=== PATIENT | female | born 1955 | race African-American/Black ===

== ENCOUNTER 2018-10-18 19:33 | Inpatient (IN) | payer MEDICAID ==
[~2018-10-18] VITALS: Ht 182.9 cm; Wt 92.7 kg
[~2018-10-18 19:33] MED LIST: BACL20TA PO; COPAXONE; DETLA2 PO; GABA300C PO; MULT-1146 PO; OXYB5TAB11 PO; VITAMIN C
[2018-10-18] MEDS ORDERED: SODIUM CHLORIDE 0.9% 1000ML BAG (SEPSIS BOLUS) IV ONE (20:15)
[2018-10-18] MEDS ORDERED: ACETAMINOPHEN 325MG TABLET PO STA (20:15)
[2018-10-18] MEDS ORDERED: LEVOFLOXACIN 750MG PREMIX 150 ML IV ONE (20:15)
[2018-10-18 21:04] LABS: CHLORIDE 103 mEq/L (98-107); HEMATOCRIT. 36.2 % (36.0-48.0); HEMOGLOBIN. 11.4 g/dL (12.0-16.0); MEAN CORPUSCULAR HEMOGLOBIN 26.1 pg (28.0-32.0); MEAN CORPUSCULAR VOLUME 82.9 fL (81.0-99.0); MEAN PLATELET VOLUME 8.1 fl (7.4-10.4); PLATELET 595 x1000/uL (130-400); RED BLOOD CELL COUNT 4.37 mill/uL (4.2-5.4); RED CELL DISTRIBUTION WIDTH 15.5 % (11.6-14.6)
[2018-10-18 21:06] LABS: INR 1.1; PARTIAL THROMBOPLASTIN TIME 28.9 sec (23.4-31.0); PROTHROMBIN TIME 11.5 sec (9.6-11.0)
[2018-10-18 21:26] LABS: PLATELET ESTIMATE INCREASED
[2018-10-18 22:33] LABS: CLARITY URINE TURBID (CLEAR); COLOR URINE YELLOW (YELLOW); KETONES URINE 1+ (NEGATIVE); LEUKOCYTE ESTERASE URINE 3+ (NEGATIVE); NITRITE URINE POSITIVE (NEGATIVE); OCCULT BLOOD URINE 3+ (NEGATIVE); PROTEIN URINE 3+ (NEGATIVE); SPECIFIC GRAVITY URINE 1.015 (1.005-1.030)
[2018-10-18] MEDS ORDERED: KETOROLAC 15MG/ML VIAL IV ONE (23:15)
[2018-10-19 05:00] VITALS: BP 107/55
[2018-10-19] MEDS ORDERED: POTASSIUM CHLORIDE 20MEQ TABLET SR PO NR (05:30)
[2018-10-19] MEDS ORDERED: DEXTROSE 50% WATER 50ML SYRINGE IV PRN (05:30)
[2018-10-19] MEDS: MORPHINE SULFATE 4 MG/ML CPJ (NOT FOR IM USE) IV PRN ×4 (06:11→20:39)
[2018-10-19] MEDS: BLOOD SUGAR DIAGNOSTIC STRIP TEST SCH ×4 (06:19→20:04)
[2018-10-19] MEDS: INSULIN LISPRO 100 UNITS/ML SUBCUT SCH ×4 (07:41→20:04)
[2018-10-19 08:00] VITALS: BP 126/61
[2018-10-19 09:01] LABS: HEMATOCRIT. 32.9 % (36.0-48.0); HEMOGLOBIN. 10.5 g/dL (12.0-16.0); MEAN CORPUSCULAR HEMOGLOBIN 26.6 pg (28.0-32.0); MEAN CORPUSCULAR VOLUME 83.5 fL (81.0-99.0); MEAN PLATELET VOLUME 8.4 fl (7.4-10.4); PLATELET 457 x1000/uL (130-400); RED BLOOD CELL COUNT 3.93 mill/uL (4.2-5.4); RED CELL DISTRIBUTION WIDTH 15.5 % (11.6-14.6)
[2018-10-19 09:07] LABS: CHLORIDE 110 mEq/L (98-107)
[2018-10-19] MEDS: HEPARIN 5000 UNITS/ML VIAL SUBCUT SCH ×2 (10:13→20:38)
[2018-10-19] MEDS: FAMOTIDINE 20MG TABLET PO SCH ×2 (10:14→20:39)
[2018-10-19 12:00] VITALS: BP 137/65
[2018-10-19] MEDS ORDERED: POLYVINYL ALCOHOL OPHTH DROPS 15ML BOTHEYE PRN (12:15)
[2018-10-19] MEDS: ACETAMINOPHEN 325MG TABLET PO PRN ×2 (13:42→23:29)
[2018-10-19 13:44] LABS: PLATELET ESTIMATE SLIGHTLY INCREASED
[2018-10-19] MEDS: ONDANSETRON HCL 4MG/2ML INJ IV PRN (14:16)
[2018-10-19 16:00] VITALS: BP 121/60
[2018-10-19] MEDS: DEXT 5%/0.45% NACL KCL 10MEQ/L 1,000 ML IV SCH (18:27)
[2018-10-19 20:00] VITALS: BP 122/88
[2018-10-19] MEDS: LEVOFLOXACIN 500MG PREMIX 100 ML IV SCH (20:38)
[2018-10-20] VITALS: BP 125/60
[2018-10-20] MEDS: MORPHINE SULFATE 4 MG/ML CPJ (NOT FOR IM USE) IV PRN ×5 (00:48→21:26)
[2018-10-20 04:00] VITALS: BP 115/62
[2018-10-20] MEDS: DEXT 5%/0.45% NACL KCL 10MEQ/L 1,000 ML IV SCH ×3 (04:17→23:22)
[2018-10-20 05:37] LABS: BASOPHILS % 0.4 % (0.0-2.0); EOSINOPHILS % 0.3 % (0.0-5.0); HEMATOCRIT. 31.8 % (36.0-48.0); HEMOGLOBIN. 10.3 g/dL (12.0-16.0); MEAN CORPUSCULAR HEMOGLOBIN 26.9 pg (28.0-32.0); MEAN PLATELET VOLUME 8.5 fl (7.4-10.4); MONOCYTES % 5.5 % (2.0-8.0); NEUTROPHILS % 84.8 % (40.0-76.0); PLATELET 404 x1000/uL (130-400); RED BLOOD CELL COUNT 3.83 mill/uL (4.2-5.4); RED CELL DISTRIBUTION WIDTH 15.4 % (11.6-14.6)
[2018-10-20 06:43] LABS: CHLORIDE 105 mEq/L (98-107)
[2018-10-20] MEDS: BLOOD SUGAR DIAGNOSTIC STRIP TEST SCH ×4 (06:58→21:27)
[2018-10-20 07:01] LABS: PHOSPHORUS 2.7 mg/dL (2.5-4.9)
[2018-10-20] MEDS: INSULIN LISPRO 100 UNITS/ML SUBCUT SCH ×4 (07:30→21:00)
[2018-10-20 08:00] VITALS: BP 133/73
[2018-10-20] MEDS: HEPARIN 5000 UNITS/ML VIAL SUBCUT SCH ×2 (09:07→21:27)
[2018-10-20] MEDS: FAMOTIDINE 20MG TABLET PO SCH ×2 (09:07→21:27)
[2018-10-20] MEDS ORDERED: POTASSIUM CHLORIDE 20MEQ TABLET SR PO SCH (11:00)
[2018-10-20 12:00] VITALS: BP 127/63
[2018-10-20] MEDS ORDERED: MAGNESIUM 1 G PREMIX 100 ML IV SCH (12:00)
[2018-10-20] MEDS: ONDANSETRON HCL 4MG/2ML INJ IV PRN (14:31)
[2018-10-20 16:00] VITALS: BP 128/58
[2018-10-20 20:00] VITALS: BP 121/62
[2018-10-20] MEDS: LEVOFLOXACIN 500MG PREMIX 100 ML IV SCH (21:27)
[2018-10-21] VITALS: BP 121/72
[2018-10-21 04:00] VITALS: BP 125/74
[2018-10-21] MEDS: MORPHINE SULFATE 4 MG/ML CPJ (NOT FOR IM USE) IV PRN ×4 (04:18→20:40)
[2018-10-21 05:41] LABS: CHLORIDE 105 mEq/L (98-107)
[2018-10-21 06:01] LABS: HEMATOCRIT 29.9 % (36.0-48.0); HEMOGLOBIN 9.7 g/dL (12.0-16.0); MEAN CORPUSCULAR VOLUME 82.9 fL (81.0-99.0); PLATELET 394 x1000/uL (130-400); RED CELL DISTRIBUTION WIDTH 15.4 % (11.6-14.6)
[2018-10-21] MEDS: BLOOD SUGAR DIAGNOSTIC STRIP TEST SCH ×4 (06:45→21:01)
[2018-10-21] MEDS: INSULIN LISPRO 100 UNITS/ML SUBCUT SCH ×4 (07:21→21:00)
[2018-10-21 08:00] VITALS: BP_SYST 124; BP_SYST 128; BP_DIAS 58; BP_DIAS 74
[2018-10-21] MEDS ORDERED: SODIUM BICARBONATE 4% (2.4MEQ) 5ML VIAL IV ONE ×2 (08:38→09:23)
[2018-10-21] MEDS ORDERED: LIDOCAINE HCL 1% 20ML VIAL (Pyxis) INJ ONE ×2 (08:39→09:23)
[2018-10-21] MEDS: FAMOTIDINE 20MG TABLET PO SCH ×2 (11:19→20:39)
[2018-10-21] MEDS: HEPARIN 5000 UNITS/ML VIAL SUBCUT SCH ×2 (11:21→20:39)
[2018-10-21 12:00] VITALS: BP 125/74
[2018-10-21] MEDS ORDERED: POTASSIUM CHLORIDE INJ 40 MEQ in DEXT 5% WATER 250 ML IV NR (14:30)
[2018-10-21 16:00] VITALS: BP 118/79
[2018-10-21] MEDS: DEXT 5%/0.45% NACL KCL 10MEQ/L 1,000 ML IV SCH ×2 (16:03→20:40)
[2018-10-21] MEDS: LEVOFLOXACIN 500MG PREMIX 100 ML IV SCH (20:41)
[2018-10-22] VITALS: BP 131/59
[2018-10-22] MEDS: MORPHINE SULFATE 4 MG/ML CPJ (NOT FOR IM USE) IV PRN ×3 (03:44→12:40)
[2018-10-22 04:00] VITALS: BP 135/79
[2018-10-22] MEDS: DEXT 5%/0.45% NACL KCL 10MEQ/L 1,000 ML IV SCH ×2 (05:00→15:00)
[2018-10-22] MEDS: BLOOD SUGAR DIAGNOSTIC STRIP TEST SCH ×2 (06:26→13:01)
[2018-10-22] MEDS: INSULIN LISPRO 100 UNITS/ML SUBCUT SCH ×2 (06:30→13:01)
[2018-10-22 06:38] LABS: HEMATOCRIT 31.5 % (36.0-48.0); HEMOGLOBIN 10.1 g/dL (12.0-16.0); MEAN CORPUSCULAR HEMOGLOBIN 26.8 pg (28.0-32.0); MEAN CORPUSCULAR VOLUME 83.5 fL (81.0-99.0); PLATELET 402 x1000/uL (130-400); RED BLOOD CELL COUNT 3.77 mill/uL (4.2-5.4); RED CELL DISTRIBUTION WIDTH 15.1 % (11.6-14.6)
[2018-10-22 06:45] LABS: CHLORIDE 106 mEq/L (98-107)
[2018-10-22 08:00] VITALS: BP 124/84
[2018-10-22] MEDS: FAMOTIDINE 20MG TABLET PO SCH (08:34)
[2018-10-22] MEDS: HEPARIN 5000 UNITS/ML VIAL SUBCUT SCH (08:34)
[2018-10-22 12:00] VITALS: BP 141/74
[2018-10-22 13:13] VITALS: BP 141/74
[2018-10-22 16:00] VITALS: BP 148/76
== END 2018-10-22 17:11 | DRG 720 ==
LOC: ER 19:33 → ENRESERV 10-19 02:04 → 7WST 10-19 04:47
PROVIDERS: ADMIT Internal Medicine; ATTEND Internal Medicine
PROC: 02HV33Z Insertion of Infusion Device into Superior Vena Cava, Percutaneous Approach (ICD-10-PCS; principal; 2018-10-21)
PROC: B5181ZA Fluoroscopy of Superior Vena Cava using Low Osmolar Contrast, Guidance (ICD-10-PCS; 2018-10-21)
PROC: B548ZZA Ultrasonography of Superior Vena Cava, Guidance (ICD-10-PCS; 2018-10-21)
DX: A41.9 Sepsis, unspecified organism (principal); E44.0 Moderate protein-calorie malnutrition; E83.42 Hypomagnesemia; G62.9 Polyneuropathy, unspecified; N39.0 Urinary tract infection, site not specified; G35 Multiple sclerosis; N31.9 Neuromuscular dysfunction of bladder, unspecified; B96.20 Unspecified Escherichia coli [E. coli] as the cause of diseases classified elsewhere; E11.9 Type 2 diabetes mellitus without complications; E87.6 Hypokalemia; I10 Essential (primary) hypertension; N20.0 Calculus of kidney; Z74.01 Bed confinement status; Z83.3 Family history of diabetes mellitus; Z88.0 Allergy status to penicillin; Z88.2 Allergy status to sulfonamides; Z91.018 Allergy to other foods; Z79.899 Other long term (current) drug therapy
CPT/HCPCS: 36415; 36569; 36573; 71045; 74018; 74176; 80048; 82962; 83036; 83605; 83735; 84100; 84145; 84484; 85027; 87077; 87186; 93005; 93970; 96365; 96375; 99291; C1725; J1644; J1815; J1885; J1956; J2270; J2405; J3475; J3480; J3490; J7030; J7050; J7060

== ENCOUNTER 2020-06-15 15:03 | Inpatient (IN) | payer MEDICAID ==
[~2020-06-15] VITALS: Ht 170.2 cm; Wt 87.5 kg
[~2020-06-15 15:03] MED LIST changes: -OXYB5TAB11 PO; +OXYB5TAB16 PO
[2020-06-15] MEDS ORDERED: AZITHROMYCIN 500 MG in DEXT 5% WATER 250 ML IV ONE (16:00)
[2020-06-15] MEDS ORDERED: SODIUM CHLORIDE 0.9% 1000ML BAG (SEPSIS BOLUS) IV ONE (16:00)
[2020-06-15] MEDS ORDERED: PIPERACILLIN/TAZ 3.375G PREMIX 50 ML IV ONE (16:00)
[2020-06-15] MEDS ORDERED: VANCOMYCIN 1 G PREMIX 200 ML IV ONE (16:00)
[2020-06-15 17:50] LABS: BASOPHILS % 0.3 % (0.0-2.0); EOSINOPHILS % 0.1 % (0.0-5.0); HEMATOCRIT. 36.7 % (36.0-48.0); HEMOGLOBIN. 11.7 g/dL (12.0-16.0); MEAN CORPUSCULAR HEMOGLOBIN 26.1 pg (28.0-32.0); MEAN CORPUSCULAR VOLUME 82.3 fL (81.0-99.0); MEAN PLATELET VOLUME 8.2 fl (7.4-10.4); MONOCYTES % 5.7 % (2.0-8.0); NEUTROPHILS % 85.9 % (40.0-76.0); PLATELET 290 x1000/uL (130-400); RED BLOOD CELL COUNT 4.46 mill/uL (4.2-5.4); RED CELL DISTRIBUTION WIDTH 16.2 % (11.6-14.6)
[2020-06-15 17:57] LABS: CHLORIDE 108 mEq/L (98-107)
[2020-06-15 17:58] LABS: INR 1.1; PROTHROMBIN TIME 11.6 sec (9.6-11.0)
[2020-06-16] MEDS: POTASSIUM CHLORIDE 20MEQ TABLET SR PO ONE ×2 (09:45→11:06)
[2020-06-16] MEDS ORDERED: ONDANSETRON HCL 4MG/2ML INJ IV PRN (09:45)
[2020-06-16] MEDS ORDERED: ALBUTEROL 6.7GM HFA INHALER ORI PRN (09:45)
[2020-06-16] MEDS ORDERED: BENZONATATE 100MG CAPSULE PO PRN (09:45)
[2020-06-16] MEDS: ENOXAPARIN 40MG/0.4ML SYR SUBCUT SCH (11:20)
[2020-06-16] MEDS: ACETAMINOPHEN 325MG TABLET PO PRN (11:20)
[2020-06-16] MEDS: BLOOD SUGAR DIAGNOSTIC STRIP TEST SCH ×3 (11:24→21:00)
[2020-06-16] MEDS: INSULIN LISPRO 100 UNITS/ML SUBCUT SCH ×3 (11:24→21:00)
[2020-06-16] MEDS: AMLODIPINE 10MG TABLET PO SCH (11:27)
[2020-06-16] MEDS ORDERED: LEVOFLOXACIN 500MG PREMIX 100 ML IV SCH (12:00)
[2020-06-16] MEDS ORDERED: LIDOCAINE HCL 1% 20ML VIAL (Pyxis) INJ ONE (12:53)
[2020-06-16 20:48] VITALS: BP 134/68
[2020-06-16 21:00] VITALS: BP 143/82
[2020-06-16] MEDS ORDERED: IOHEXOL-350 100 ML BOTTLE ONE (23:11)
[2020-06-17 00:01] VITALS: BP 128/67
[2020-06-17] MEDS: ACETAMINOPHEN 325MG TABLET PO PRN ×3 (03:53→23:05)
[2020-06-17 04:00] VITALS: BP_SYST 113; BP_SYST 115; BP_DIAS 55; BP_DIAS 62
[2020-06-17] MEDS: INSULIN LISPRO 100 UNITS/ML SUBCUT SCH ×4 (06:00→20:50)
[2020-06-17] MEDS: BLOOD SUGAR DIAGNOSTIC STRIP TEST SCH ×4 (06:00→20:50)
[2020-06-17 08:00] VITALS: BP 155/74
[2020-06-17] MEDS: ENOXAPARIN 40MG/0.4ML SYR SUBCUT SCH (09:30)
[2020-06-17] MEDS: AMLODIPINE 10MG TABLET PO SCH (09:31)
[2020-06-17] MEDS: LEVOFLOXACIN 500MG PREMIX 100 ML IV SCH (11:26)
[2020-06-17 12:00] VITALS: BP 143/75
[2020-06-17] MEDS ORDERED: LACTULOSE 20G/30ML UDC PO NR (13:00)
[2020-06-17 16:00] VITALS: BP 143/71
[2020-06-17 16:34] LABS: BASOPHILS % 0.5 % (0.0-2.0); EOSINOPHILS % 1.1 % (0.0-5.0); HEMATOCRIT. 34.4 % (36.0-48.0); HEMOGLOBIN. 11.4 g/dL (12.0-16.0); LYMPHOCYTES % 14.5 % (20.0-50.0); MEAN CORPUSCULAR HEMOGLOBIN 27.2 pg (28.0-32.0); MEAN CORPUSCULAR VOLUME 82.4 fL (81.0-99.0); MEAN PLATELET VOLUME 8.8 fl (7.4-10.4); MONOCYTES % 6.3 % (2.0-8.0); NEUTROPHILS % 77.6 % (40.0-76.0); PLATELET 260 x1000/uL (130-400); RED BLOOD CELL COUNT 4.17 mill/uL (4.2-5.4); RED CELL DISTRIBUTION WIDTH 15.7 % (11.6-14.6)
[2020-06-17 16:46] LABS: CHLORIDE 103 mEq/L (98-107)
[2020-06-17] MEDS ORDERED: POTASSIUM CHLORIDE 20MEQ TABLET SR PO NR (17:18)
[2020-06-17] MEDS: DOCUSATE SODIUM 100MG CAPSULE PO SCH (17:24)
[2020-06-17] MEDS ORDERED: POTASSIUM CHLORIDE INJ 40 MEQ in DEXT 5% WATER 250 ML IV NR (19:30)
[2020-06-17 20:00] VITALS: BP 137/77
[2020-06-17] MEDS ORDERED: IPRATROPIUM/ALBUTEROL 0.5-3(2.5)MG/3ML NEB HHN PRN (21:15)
[2020-06-17] MEDS: FAMOTIDINE 20MG TABLET PO SCH (21:28)
[2020-06-18] VITALS (7 sets, daily range): BP systolic 132–151; BP diastolic 73–84
[2020-06-18] MEDS: BLOOD SUGAR DIAGNOSTIC STRIP TEST SCH ×4 (06:34→20:11)
[2020-06-18] MEDS: INSULIN LISPRO 100 UNITS/ML SUBCUT SCH ×4 (07:50→20:11)
[2020-06-18] MEDS: AMLODIPINE 10MG TABLET PO SCH (10:31)
[2020-06-18] MEDS: DOCUSATE SODIUM 100MG CAPSULE PO SCH ×2 (10:32→16:59)
[2020-06-18] MEDS: ENOXAPARIN 40MG/0.4ML SYR SUBCUT SCH (10:33)
[2020-06-18 12:42] LABS: BASOPHILS % 0.7 % (0.0-2.0); EOSINOPHILS % 1.3 % (0.0-5.0); HEMATOCRIT. 36.1 % (36.0-48.0); HEMOGLOBIN. 11.6 g/dL (12.0-16.0); LYMPHOCYTES % 17.8 % (20.0-50.0); MEAN CORPUSCULAR HEMOGLOBIN 26.4 pg (28.0-32.0); MEAN CORPUSCULAR VOLUME 82.3 fL (81.0-99.0); MEAN PLATELET VOLUME 8.5 fl (7.4-10.4); MONOCYTES % 6.4 % (2.0-8.0); NEUTROPHILS % 73.8 % (40.0-76.0); PLATELET 325 x1000/uL (130-400); RED BLOOD CELL COUNT 4.39 mill/uL (4.2-5.4); RED CELL DISTRIBUTION WIDTH 15.4 % (11.6-14.6)
[2020-06-18 12:57] LABS: CHLORIDE 102 mEq/L (98-107)
[2020-06-18] MEDS: LEVOFLOXACIN 500MG PREMIX 100 ML IV SCH (13:06)
[2020-06-18] MEDS: POTASSIUM CHLORIDE 20MEQ TABLET SR PO SCH ×3 (14:26→20:08)
[2020-06-18] MEDS: HYDROCODONE/ACETAMINOPHEN 5/325MG TABLET PO PRN ×2 (15:18→20:13)
[2020-06-18] MEDS: FAMOTIDINE 20MG TABLET PO SCH (20:08)
[2020-06-19] VITALS: BP 138/65
[2020-06-19 04:00] VITALS: BP 125/63
[2020-06-19] MEDS: BLOOD SUGAR DIAGNOSTIC STRIP TEST SCH ×4 (07:20→20:59)
[2020-06-19] MEDS: INSULIN LISPRO 100 UNITS/ML SUBCUT SCH ×4 (07:50→20:59)
[2020-06-19 08:22] VITALS: BP 128/68
[2020-06-19] MEDS: DOCUSATE SODIUM 100MG CAPSULE PO SCH ×2 (09:38→17:08)
[2020-06-19] MEDS: AMLODIPINE 10MG TABLET PO SCH (09:39)
[2020-06-19] MEDS: ENOXAPARIN 40MG/0.4ML SYR SUBCUT SCH (09:40)
[2020-06-19] MEDS: HYDROCODONE/ACETAMINOPHEN 5/325MG TABLET PO PRN ×2 (11:07→23:33)
[2020-06-19] MEDS: LEVOFLOXACIN 500MG PREMIX 100 ML IV SCH (12:01)
[2020-06-19 12:12] VITALS: BP 141/69
[2020-06-19 16:00] VITALS: BP 129/64
[2020-06-19 20:23] VITALS: BP 127/67
[2020-06-19] MEDS: FAMOTIDINE 20MG TABLET PO SCH (21:01)
[2020-06-20] VITALS (7 sets, daily range): BP systolic 101–145; BP diastolic 59–79
[2020-06-20] MEDS: HYDROCODONE/ACETAMINOPHEN 5/325MG TABLET PO PRN ×3 (04:23→18:11)
[2020-06-20] MEDS: BLOOD SUGAR DIAGNOSTIC STRIP TEST SCH ×4 (07:14→20:29)
[2020-06-20] MEDS: INSULIN LISPRO 100 UNITS/ML SUBCUT SCH ×4 (07:50→20:29)
[2020-06-20] MEDS: ENOXAPARIN 40MG/0.4ML SYR SUBCUT SCH (08:44)
[2020-06-20] MEDS: AMLODIPINE 10MG TABLET PO SCH (08:45)
[2020-06-20] MEDS: DOCUSATE SODIUM 100MG CAPSULE PO SCH ×2 (08:45→17:28)
[2020-06-20] MEDS: LEVOFLOXACIN 500MG PREMIX 100 ML IV SCH (10:22)
[2020-06-20] MEDS ORDERED: POTASSIUM CHLORIDE 20MEQ/PACKET PO NR (13:30)
[2020-06-20] MEDS: POTASSIUM CHLORIDE 20MEQ TABLET SR PO SCH (16:00)
[2020-06-20] MEDS: FAMOTIDINE 20MG TABLET PO SCH (21:36)
[2020-06-21] VITALS: BP 122/64
[2020-06-21] MEDS: HYDROCODONE/ACETAMINOPHEN 5/325MG TABLET PO PRN ×4 (01:28→23:41)
[2020-06-21 04:00] VITALS: BP 114/63
[2020-06-21] MEDS: BLOOD SUGAR DIAGNOSTIC STRIP TEST SCH ×4 (06:22→20:51)
[2020-06-21] MEDS: INSULIN LISPRO 100 UNITS/ML SUBCUT SCH ×4 (07:50→20:51)
[2020-06-21 08:08] VITALS: BP 109/54
[2020-06-21] MEDS: AMLODIPINE 10MG TABLET PO SCH (09:00)
[2020-06-21] MEDS: ENOXAPARIN 40MG/0.4ML SYR SUBCUT SCH (09:58)
[2020-06-21] MEDS: POTASSIUM CHLORIDE 20MEQ TABLET SR PO SCH (09:58)
[2020-06-21] MEDS: DOCUSATE SODIUM 100MG CAPSULE PO SCH ×2 (09:58→17:07)
[2020-06-21 12:14] VITALS: BP 109/63
[2020-06-21 16:24] LABS: CHLORIDE 103 mEq/L (98-107)
[2020-06-21 16:42] VITALS: BP 129/69
[2020-06-21 20:40] VITALS: BP 120/74
[2020-06-21] MEDS: FAMOTIDINE 20MG TABLET PO SCH (20:43)
[2020-06-22] VITALS: BP 114/66
[2020-06-22 04:00] VITALS: BP 109/64
[2020-06-22] MEDS: HYDROCODONE/ACETAMINOPHEN 5/325MG TABLET PO PRN ×3 (05:12→17:39)
[2020-06-22] MEDS: BLOOD SUGAR DIAGNOSTIC STRIP TEST SCH ×3 (06:27→17:20)
[2020-06-22] MEDS: INSULIN LISPRO 100 UNITS/ML SUBCUT SCH ×3 (07:38→17:50)
[2020-06-22 08:00] VITALS: BP 108/68
[2020-06-22] MEDS: AMLODIPINE 10MG TABLET PO SCH (09:00)
[2020-06-22] MEDS: ENOXAPARIN 40MG/0.4ML SYR SUBCUT SCH (11:10)
[2020-06-22] MEDS: POTASSIUM CHLORIDE 20MEQ TABLET SR PO SCH (11:10)
[2020-06-22] MEDS: DOCUSATE SODIUM 100MG CAPSULE PO SCH ×2 (11:20→17:00)
[2020-06-22 12:00] VITALS: BP 106/64
[2020-06-22 16:00] VITALS: BP 103/64
[2020-06-22 20:00] VITALS: BP 112/51
== END 2020-06-22 21:00 | DRG 720 ==
LOC: ER 15:03 → MICUSO 18:00 → EDBEDREQ 18:04 → EDBEDREQTM 18:04 → 7WST 06-16 19:07 → 6WST 06-17 08:09
PROVIDERS: ADMIT Internal Medicine; ATTEND Internal Medicine
PROC: 02HV33Z Insertion of Infusion Device into Superior Vena Cava, Percutaneous Approach (ICD-10-PCS; principal; 2020-06-16)
PROC: B548ZZA Ultrasonography of Superior Vena Cava, Guidance (ICD-10-PCS; 2020-06-16)
DX: A41.9 Sepsis, unspecified organism (principal); E43 Unspecified severe protein-calorie malnutrition; J18.9 Pneumonia, unspecified organism; J96.01 Acute respiratory failure with hypoxia; D64.9 Anemia, unspecified; E11.22 Type 2 diabetes mellitus with diabetic chronic kidney disease; E87.6 Hypokalemia; E87.8 Other disorders of electrolyte and fluid balance, not elsewhere classified; G35 Multiple sclerosis; J45.909 Unspecified asthma, uncomplicated; N18.9 Chronic kidney disease, unspecified; E86.0 Dehydration; Z20.828 Contact with and (suspected) exposure to other viral communicable diseases; I12.9 Hypertensive chronic kidney disease with stage 1 through stage 4 chronic kidney disease, or unspecified chronic kidney disease; Z88.0 Allergy status to penicillin; Z88.2 Allergy status to sulfonamides; Z88.8 Allergy status to other drugs, medicaments and biological substances; Z79.899 Other long term (current) drug therapy; Z68.30 Body mass index [BMI] 30.0-30.9, adult; Z86.19 Personal history of other infectious and parasitic diseases
CPT/HCPCS: 36415; 71045; 71275; 76937; 80048; 80053; 81003; 82962; 83605; 83735; 84132; 84145; 84484; 85025; 87635; 87804; 93005; 97162; 99291; C1725; J0456; J1650; J1815; J1956; J2543; J3370; J3480; J3490; J7030; J7040; J7060; Q9967

== ENCOUNTER 2020-09-02 17:23 | Inpatient (IN) | payer MEDICAID ==
[~2020-09-02] VITALS: Ht 167.6 cm; Wt 76.7 kg
[2020-09-02] MEDS ORDERED: ACETAMINOPHEN 325MG TABLET PO STA (17:57)
[2020-09-02] MEDS ORDERED: LEVOFLOXACIN 750MG PREMIX 150 ML IV ONE (18:00)
[2020-09-02] MEDS ORDERED: SODIUM CHLORIDE 0.9% 1000ML BAG (SEPSIS BOLUS) IV ONE (18:00)
[2020-09-02] MEDS ORDERED: VANCOMYCIN 1 G PREMIX 200 ML IV ONE (18:00)
[2020-09-02 18:58] LABS: HEMATOCRIT. 35.6 % (36.0-48.0); HEMOGLOBIN. 11.3 g/dL (12.0-16.0); MEAN CORPUSCULAR HEMOGLOBIN 26.2 pg (28.0-32.0); MEAN CORPUSCULAR VOLUME 82.8 fL (81.0-99.0); MEAN PLATELET VOLUME 8.3 fl (7.4-10.4); PLATELET 445 x1000/uL (130-400); RED CELL DISTRIBUTION WIDTH 18.2 % (11.6-14.6)
[2020-09-02 19:06] LABS: CHLORIDE 104 mEq/L (98-107)
[2020-09-02 19:09] LABS: CLARITY URINE TURBID (CLEAR); COLOR URINE YELLOW (YELLOW); KETONES URINE NEGATIVE (NEGATIVE); LEUKOCYTE ESTERASE URINE 3+ (NEGATIVE); NITRITE URINE POSITIVE (NEGATIVE); OCCULT BLOOD URINE 2+ (NEGATIVE); PROTEIN URINE 2+ (NEGATIVE); SPECIFIC GRAVITY URINE 1.014 (1.005-1.030); UROBILINOGEN URINE 0.2 E.U./dL (0.2-1.0)
[2020-09-02 19:17] LABS: INR 1.1; PROTHROMBIN TIME 11.6 sec (9.6-11.0)
[2020-09-02 19:49] LABS: PLATELET ESTIMATE SLIGHTLY INCREASED
[2020-09-03] MEDS ORDERED: HYDROCODONE/ACETAMINOPHEN 10/325MG TABLET PO PRN (03:45)
[2020-09-03] MEDS ORDERED: POTASSIUM CHLORIDE INJ 40 MEQ in DEXT 5% WATER 250 ML IV ONE (03:45)
[2020-09-03] MEDS ORDERED: ALBUTEROL 6.7GM HFA INHALER ORI PRN ×2 (03:45)
[2020-09-03 04:00] VITALS: BP 125/63
[2020-09-03 04:03] VITALS: BP 121/65
[2020-09-03] MEDS ORDERED: ACETAMINOPHEN 325MG TABLET PO PRN (04:30)
[2020-09-03] MEDS ORDERED: ONDANSETRON HCL 4MG TABLET PO PRN (04:30)
[2020-09-03] MEDS: HYDROCODONE/ACETAMINOPHEN 10/325MG TABLET PO PRN ×3 (05:15→17:38)
[2020-09-03] MEDS ORDERED: POTASSIUM CHLORIDE INJ 40 MEQ in DEXT 5% WATER 500 ML IV NR (06:00)
[2020-09-03 08:00] VITALS: BP 107/58
[2020-09-03] MEDS ORDERED: TOLTERODINE TARTRATE PO SCH (09:00)
[2020-09-03] MEDS ORDERED: DEXAMETHASONE 4MG/ML 1ML VIAL IV SCH (09:00)
[2020-09-03] MEDS ORDERED: CEFTRIAXONE 1 G PREMIX 50 ML IV SCH ×2 (09:00)
[2020-09-03] MEDS ORDERED: AZITHROMYCIN 500 MG in DEXT 5% WATER 250 ML IV SCH (09:00)
[2020-09-03] MEDS: DEXAMETHASONE 4MG/ML 1ML VIAL IV SCH (09:17)
[2020-09-03] MEDS: OXYBUTYNIN CHLORIDE 5MG TABLET PO SCH ×3 (09:17→17:13)
[2020-09-03] MEDS: AZITHROMYCIN 500 MG in DEXT 5% WATER 250 ML IV SCH (09:17)
[2020-09-03] MEDS: CEFTRIAXONE 1,000 MG in DEXTROSE 5% WATER 50 ML IV SCH (09:17)
[2020-09-03] MEDS: ASCORBIC ACID 500 MG TABLET PO SCH (09:17)
[2020-09-03] MEDS: SODIUM CHLORIDE 0.9% 1,000 ML IV SCH ×2 (09:19→19:39)
[2020-09-03 09:37] LABS: HEMATOCRIT. 33.2 % (36.0-48.0); HEMOGLOBIN. 10.3 g/dL (12.0-16.0); MEAN CORPUSCULAR VOLUME 83.9 fL (81.0-99.0); MEAN PLATELET VOLUME 7.8 fl (7.4-10.4); PLATELET 410 x1000/uL (130-400); RED BLOOD CELL COUNT 3.95 mill/uL (4.2-5.4); RED CELL DISTRIBUTION WIDTH 17.9 % (11.6-14.6)
[2020-09-03 09:45] LABS: CHLORIDE 110 mEq/L (98-107)
[2020-09-03 12:00] VITALS: BP 112/53
[2020-09-03] MEDS: BACLOFEN 10MG TABLET PO SCH ×2 (12:23→17:13)
[2020-09-03 14:26] LABS: PLATELET ESTIMATE INCREASED
[2020-09-03 16:00] VITALS: BP 98/51
[2020-09-03] MEDS ORDERED: POTASSIUM CHLORIDE 20MEQ TABLET SR PO NR (16:15)
[2020-09-03] MEDS: GABAPENTIN 300MG CAPSULE PO SCH (19:39)
[2020-09-03 20:00] VITALS: BP 95/46
[2020-09-04] VITALS: BP 104/55
[2020-09-04 04:00] VITALS: BP 100/57
[2020-09-04 07:17] LABS: BASOPHILS % 0.3 % (0.0-2.0); EOSINOPHILS % 0.6 % (0.0-5.0); HEMATOCRIT. 34.4 % (36.0-48.0); HEMOGLOBIN. 10.8 g/dL (12.0-16.0); LYMPHOCYTES % 11.9 % (20.0-50.0); MEAN CORPUSCULAR HEMOGLOBIN 26.5 pg (28.0-32.0); MEAN CORPUSCULAR VOLUME 84.9 fL (81.0-99.0); MEAN PLATELET VOLUME 8.7 fl (7.4-10.4); NEUTROPHILS % 81.2 % (40.0-76.0); PLATELET 374 x1000/uL (130-400); RED BLOOD CELL COUNT 4.06 mill/uL (4.2-5.4); RED CELL DISTRIBUTION WIDTH 18.7 % (11.6-14.6)
[2020-09-04 07:22] LABS: CHLORIDE 112 mEq/L (98-107)
[2020-09-04 08:00] VITALS: BP 109/62
[2020-09-04] MEDS: DEXAMETHASONE 4MG/ML 1ML VIAL IV SCH (09:08)
[2020-09-04] MEDS: ASCORBIC ACID 500 MG TABLET PO SCH (09:09)
[2020-09-04] MEDS: OXYBUTYNIN CHLORIDE 5MG TABLET PO SCH ×3 (09:09→16:39)
[2020-09-04] MEDS: ENOXAPARIN 40MG/0.4ML SYR SUBCUT SCH (09:09)
[2020-09-04] MEDS: BACLOFEN 10MG TABLET PO SCH ×3 (09:09→16:39)
[2020-09-04] MEDS: CEFTRIAXONE 1,000 MG in DEXTROSE 5% WATER 50 ML IV SCH (10:08)
[2020-09-04] MEDS: AZITHROMYCIN 500 MG in DEXT 5% WATER 250 ML IV SCH (10:08)
[2020-09-04] MEDS: SODIUM CHLORIDE 0.9% 1,000 ML IV SCH (10:11)
[2020-09-04 12:00] VITALS: BP 113/55
[2020-09-04 16:00] VITALS: BP 125/78
[2020-09-04] MEDS ORDERED: BENZONATATE 100MG CAPSULE PO PRN (17:15)
[2020-09-04] MEDS: HYDROCODONE/ACETAMINOPHEN 10/325MG TABLET PO PRN (17:58)
[2020-09-04 20:00] VITALS: BP 109/39
[2020-09-04] MEDS: GABAPENTIN 300MG CAPSULE PO SCH (20:21)
[2020-09-05] VITALS: BP 109/65
[2020-09-05 04:00] VITALS: BP 101/67
[2020-09-05] MEDS: SODIUM CHLORIDE 0.9% 1,000 ML IV SCH ×2 (04:41→13:50)
[2020-09-05 08:00] VITALS: BP 117/78
[2020-09-05] MEDS: AZITHROMYCIN 500 MG in DEXT 5% WATER 250 ML IV SCH (08:30)
[2020-09-05] MEDS: ENOXAPARIN 40MG/0.4ML SYR SUBCUT SCH (08:31)
[2020-09-05] MEDS: CEFTRIAXONE 1,000 MG in DEXTROSE 5% WATER 50 ML IV SCH (08:31)
[2020-09-05] MEDS: BACLOFEN 10MG TABLET PO SCH ×3 (08:31→17:06)
[2020-09-05] MEDS: OXYBUTYNIN CHLORIDE 5MG TABLET PO SCH ×3 (08:31→17:05)
[2020-09-05] MEDS: ASCORBIC ACID 500 MG TABLET PO SCH (08:31)
[2020-09-05] MEDS: DEXAMETHASONE 4MG/ML 1ML VIAL IV SCH (08:31)
[2020-09-05] MEDS: HYDROCODONE/ACETAMINOPHEN 10/325MG TABLET PO PRN ×2 (08:53→20:59)
[2020-09-05 12:07] VITALS: BP 116/57
[2020-09-05 16:00] VITALS: BP 136/100
[2020-09-05 20:00] VITALS: BP 120/55
[2020-09-05] MEDS: GABAPENTIN 300MG CAPSULE PO SCH (20:49)
[2020-09-06 04:00] VITALS: BP 126/67
[2020-09-06 08:00] VITALS: BP 136/50
[2020-09-06] MEDS: CEFTRIAXONE 1,000 MG in DEXTROSE 5% WATER 50 ML IV SCH (08:26)
[2020-09-06] MEDS: ENOXAPARIN 40MG/0.4ML SYR SUBCUT SCH (09:09)
[2020-09-06] MEDS: BACLOFEN 10MG TABLET PO SCH ×3 (09:09→18:22)
[2020-09-06] MEDS: DEXAMETHASONE 4MG/ML 1ML VIAL IV SCH (09:09)
[2020-09-06] MEDS: OXYBUTYNIN CHLORIDE 5MG TABLET PO SCH ×3 (09:09→18:22)
[2020-09-06] MEDS: ASCORBIC ACID 500 MG TABLET PO SCH (09:09)
[2020-09-06] MEDS: AZITHROMYCIN 500 MG in DEXT 5% WATER 250 ML IV SCH (10:01)
[2020-09-06 12:00] VITALS: BP 112/55
[2020-09-06 16:00] VITALS: BP 138/70
[2020-09-06] MEDS: HYDROCODONE/ACETAMINOPHEN 10/325MG TABLET PO PRN (18:23)
[2020-09-06 20:00] VITALS: BP 118/49
[2020-09-06] MEDS: GABAPENTIN 300MG CAPSULE PO SCH (20:20)
[2020-09-07] VITALS: BP 128/50
[2020-09-07 04:00] VITALS: BP 100/59
[2020-09-07 08:00] VITALS: BP 96/75
[2020-09-07] MEDS: AZITHROMYCIN 500 MG in DEXT 5% WATER 250 ML IV SCH (09:34)
[2020-09-07] MEDS: CEFTRIAXONE 1,000 MG in DEXTROSE 5% WATER 50 ML IV SCH (09:34)
[2020-09-07] MEDS: ENOXAPARIN 40MG/0.4ML SYR SUBCUT SCH (09:35)
[2020-09-07] MEDS: DEXAMETHASONE 4MG/ML 1ML VIAL IV SCH (09:35)
[2020-09-07] MEDS: OXYBUTYNIN CHLORIDE 5MG TABLET PO SCH ×2 (09:35→13:19)
[2020-09-07] MEDS: ASCORBIC ACID 500 MG TABLET PO SCH (09:35)
[2020-09-07] MEDS: BACLOFEN 10MG TABLET PO SCH ×2 (09:35→13:19)
[2020-09-07 12:00] VITALS: BP 109/63
[2020-09-07 14:41] VITALS: BP 109/63
[2020-09-07 16:00] VITALS: BP 110/65
== END 2020-09-07 17:05 | DRG 720 ==
LOC: ER 17:23 → MICUSO 20:13 → EDBEDREQSVC 20:19 → EDBEDREQTM 20:19 → EDBEDREQ 20:19 → 7WST 09-03 01:25 → 5WST 09-03 23:04
PROVIDERS: ADMIT Internal Medicine; ATTEND Internal Medicine
DX: A41.9 Sepsis, unspecified organism (principal); E11.9 Type 2 diabetes mellitus without complications; D64.9 Anemia, unspecified; E43 Unspecified severe protein-calorie malnutrition; E87.6 Hypokalemia; G35 Multiple sclerosis; J98.11 Atelectasis; K21.9 Gastro-esophageal reflux disease without esophagitis; N39.0 Urinary tract infection, site not specified; Z20.822 Contact with and (suspected) exposure to COVID-19; Z87.440 Personal history of urinary (tract) infections; Z88.0 Allergy status to penicillin; Z88.2 Allergy status to sulfonamides; Z91.018 Allergy to other foods; Z79.899 Other long term (current) drug therapy; Z68.27 Body mass index [BMI] 27.0-27.9, adult
CPT/HCPCS: 36415; 71045; 80048; 80053; 81003; 83605; 84484; 85025; 93005; 96365; 99291; C1893; J0456; J0696; J1100; J1650; J1956; J3370; J3480; J7030; J7060; Q0162; U0003

== ENCOUNTER 2020-10-16 20:03 | Inpatient (IN) | payer MEDICAID ==
[~2020-10-16] VITALS: Ht 175.3 cm; Wt 80.7 kg
[2020-10-16] MEDS ORDERED: SODIUM CHLORIDE 0.9% 1000ML BAG (SEPSIS BOLUS) IV ONE (20:30)
[2020-10-16] MEDS ORDERED: LEVOFLOXACIN 750MG PREMIX 150 ML IV ONE (20:45)
[2020-10-16] MEDS ORDERED: NOREPINEPHRINE 8 MG in DEXT 5% WATER 242 ML IV STA (21:18)
[2020-10-16 21:23] LABS: HEMOGLOBIN. 11.1 g/dL (12.0-16.0); MEAN CORPUSCULAR HEMOGLOBIN 27.5 pg (28.0-32.0); MEAN CORPUSCULAR VOLUME 84.4 fL (81.0-99.0); PLATELET 464 x1000/uL (130-400); RED BLOOD CELL COUNT 4.03 mill/uL (4.2-5.4); RED CELL DISTRIBUTION WIDTH 17.6 % (11.6-14.6)
[2020-10-16 21:26] LABS: CHLORIDE 107 mEq/L (98-107)
[2020-10-16 21:29] LABS: INR 1.2; PARTIAL THROMBOPLASTIN TIME 23.6 sec (23.4-31.0); PROTHROMBIN TIME 12.3 sec (9.6-11.0)
[2020-10-16] MEDS ORDERED: NOREPINEPHRINE 8 MG in DEXT 5% WATER 242 ML IV PRN (21:30)
[2020-10-16 21:44] LABS: CLARITY URINE TURBID (CLEAR); COLOR URINE ORANGE (YELLOW); KETONES URINE NEGATIVE (NEGATIVE); LEUKOCYTE ESTERASE URINE 3+ (NEGATIVE); NITRITE URINE NEGATIVE (NEGATIVE); OCCULT BLOOD URINE 3+ (NEGATIVE); PROTEIN URINE 3+ (NEGATIVE); SPECIFIC GRAVITY URINE 1.017 (1.005-1.030); UROBILINOGEN URINE 0.2 E.U./dL (0.2-1.0)
[2020-10-16 22:04] LABS: PLATELET ESTIMATE INCREASED
[2020-10-16] MEDS: VANCOMYCIN 1 G PREMIX 200 ML IV SCH (22:23)
[2020-10-16] MEDS ORDERED: ONDANSETRON HCL 4MG/2ML INJ IV ONE (23:15)
[2020-10-17] VITALS (89 sets, daily range): BP systolic 84–169; BP diastolic 27–100
[2020-10-17] MEDS ORDERED: NOREPINEPHRINE 32 MG in DEXT 5% WATER 218 ML IV PRN (02:30)
[2020-10-17] MEDS ORDERED: LEVOFLOXACIN 500MG PREMIX 100 ML IV SCH (02:30)
[2020-10-17] MEDS ORDERED: INSLIS SUBCUT (02:38)
[2020-10-17] MEDS ORDERED: LEVO500T89 MT (02:38)
[2020-10-17] MEDS ORDERED: IPRA3AMP31 NEB (02:38)
[2020-10-17] MEDS ORDERED: CHOL400D7 MT (02:38)
[2020-10-17] MEDS ORDERED: OXYC-105 MT (02:38)
[2020-10-17] MEDS ORDERED: DOCU250C69 MT (02:38)
[2020-10-17] MEDS ORDERED: POTA-9 MT (02:38)
[2020-10-17] MEDS ORDERED: CRAN400C MT (02:38)
[2020-10-17] MEDS ORDERED: PROM6.254 MT (02:38)
[2020-10-17] MEDS ORDERED: BACL-141 MT (02:38)
[2020-10-17] MEDS ORDERED: CLON0.1T MT (02:38)
[2020-10-17] MEDS ORDERED: BISA10SU62 RC (02:38)
[2020-10-17] MEDS ORDERED: DIPH25CA83 MT (02:38)
[2020-10-17] MEDS ORDERED: IBUP-2030 MT (02:38)
[2020-10-17] MEDS ORDERED: FAMO20TA8 MT (02:38)
[2020-10-17] MEDS ORDERED: AMLO10TA80 MT (02:38)
[2020-10-17] MEDS ORDERED: SENN-257 MT (02:38)
[2020-10-17] MEDS ORDERED: ASCO500C15 MT (02:38)
[2020-10-17] MEDS: DEXT 5%/0.9% NACL KCL 20MEQ/L 1,000 ML IV SCH ×3 (04:11→21:00)
[2020-10-17 05:58] LABS: HEMATOCRIT. 36.2 % (36.0-48.0); HEMOGLOBIN. 11.9 g/dL (12.0-16.0); MEAN CORPUSCULAR HEMOGLOBIN 27.9 pg (28.0-32.0); MEAN CORPUSCULAR VOLUME 85.2 fL (81.0-99.0); MEAN PLATELET VOLUME 8.2 fl (7.4-10.4); PLATELET 526 x1000/uL (130-400); RED BLOOD CELL COUNT 4.25 mill/uL (4.2-5.4); RED CELL DISTRIBUTION WIDTH 17.5 % (11.6-14.6)
[2020-10-17 06:01] LABS: CHLORIDE 107 mEq/L (98-107)
[2020-10-17] MEDS ORDERED: ENOXAPARIN 40MG/0.4ML SYR SUBCUT SCH ×2 (09:00→10:15)
[2020-10-17] MEDS: PANTOPRAZOLE SODIUM 40 MG/VIAL IV SCH (09:31)
[2020-10-17] MEDS: VANCOMYCIN 1 G PREMIX 200 ML IV SCH (09:33)
[2020-10-17] MEDS ORDERED: BISACODYL 10MG SUPP PR SCH (10:00)
[2020-10-17] MEDS ORDERED: VANCOMYCIN 1 G PREMIX 200 ML IV SCH (10:00)
[2020-10-17 10:54] LABS: PLATELET ESTIMATE INCREASED
[2020-10-17] MEDS: VANCOMYCIN 750 MG PREMIX 150 ML IV SCH (12:53)
[2020-10-17] MEDS ORDERED: IPRATROPIUM BROMIDE (0.02%) 0.5MG/2.5ML NEB HHN PRN (14:15)
[2020-10-17 14:23] LABS: BG BASE EXCESS -2.3 mmol/L (-2.0-2.0); BG CARBOXYHEMOGLOBIN 0.6 % (0.5-1.5); BG DEOXYHEMOGLOBIN 4.3 % (0.0-5.0); BG FRACTION INSPIRED OXYGEN 21; BG HCO3 ACT 22.4 mmol/L (22.0-26.0); BG METHEMOGLOBIN 0.3 % (0.0-1.5); BG OXYGEN SATURATION 95.7 % (92.0-98.5); BG OXYHEMOGLOBIN 94.8 % (94.0-97.0); BG PH 7.388 (7.350-7.450); BG PO2 74.5 mmHg (75.0-100.0); BG SAMPLE SITE RIGHT BRACHIAL; BG TOTAL HEMOGLOBIN 11.9 g/dL (12.0-18.0); BG VENT MODE ROOM AIR
[2020-10-17] MEDS: INSULIN LISPRO 100 UNITS/ML SUBCUT SCH (18:00)
[2020-10-17] MEDS: BLOOD SUGAR DIAGNOSTIC STRIP TEST SCH ×2 (18:39→23:40)
[2020-10-17] MEDS: IPRATROPIUM BROMIDE (0.02%) 0.5MG/2.5ML NEB HHN SCH (20:58)
[2020-10-17] MEDS ORDERED: LEVOFLOXACIN 250MG PREMIX 50 ML IV SCH (21:00)
[2020-10-17] MEDS: LEVOFLOXACIN 500MG PREMIX 100 ML IV SCH (21:14)
[2020-10-17] MEDS: ENOXAPARIN 80MG/0.8ML SYR SUBCUT SCH (21:15)
[2020-10-18] VITALS (99 sets, daily range): BP systolic 51–138; BP diastolic 37–93
[2020-10-18] MEDS: IPRATROPIUM BROMIDE (0.02%) 0.5MG/2.5ML NEB HHN SCH ×4 (02:18→20:25)
[2020-10-18 05:00] LABS: CHLORIDE 117 mEq/L (98-107)
[2020-10-18 05:02] LABS: HEMATOCRIT. 30.7 % (36.0-48.0); HEMOGLOBIN. 9.9 g/dL (12.0-16.0); MEAN CORPUSCULAR HEMOGLOBIN 27.2 pg (28.0-32.0); MEAN CORPUSCULAR VOLUME 84.2 fL (81.0-99.0); MEAN PLATELET VOLUME 7.8 fl (7.4-10.4); PLATELET 477 x1000/uL (130-400); RED BLOOD CELL COUNT 3.64 mill/uL (4.2-5.4); RED CELL DISTRIBUTION WIDTH 17.5 % (11.6-14.6)
[2020-10-18] MEDS: VANCOMYCIN 750 MG PREMIX 150 ML IV SCH ×2 (05:41→23:40)
[2020-10-18] MEDS: INSULIN LISPRO 100 UNITS/ML SUBCUT SCH ×5 (06:00→23:40)
[2020-10-18] MEDS: MORPHINE SULFATE 2 MG/ML CPJ (NOT FOR IM USE) IV PRN ×3 (06:26→22:17)
[2020-10-18] MEDS: BLOOD SUGAR DIAGNOSTIC STRIP TEST SCH ×4 (06:30→23:41)
[2020-10-18] MEDS: DEXT 5%/0.9% NACL KCL 20MEQ/L 1,000 ML IV SCH (06:31)
[2020-10-18] MEDS ORDERED: AMIODARONE HCL 150 MG in DEXT 5% WATER 100 ML IV ONE (06:45)
[2020-10-18] MEDS: AMIODARONE HCL 900 MG in DEXT 5% WATER 482 ML IV PRN (07:25)
[2020-10-18] MEDS ORDERED: FUROSEMIDE 100MG/10ML VIAL IVP NR (08:30)
[2020-10-18] MEDS: PANTOPRAZOLE SODIUM 40 MG/VIAL IV SCH (08:38)
[2020-10-18] MEDS: ENOXAPARIN 80MG/0.8ML SYR SUBCUT SCH ×2 (08:39→20:57)
[2020-10-18] MEDS: BISACODYL 10MG SUPP PR PRN (08:39)
[2020-10-18] MEDS: KETOROLAC 15MG/ML VIAL IV PRN ×3 (09:51→23:34)
[2020-10-18] MEDS ORDERED: MAGNESIUM 2 G PREMIX 50 ML IV NR (10:00)
[2020-10-18 10:16] LABS: PLATELET ESTIMATE NORMAL
[2020-10-18] MEDS ORDERED: PHENYLEPHRINE 100 MG in DEXT 5% WATER 240 ML IV PRN (12:30)
[2020-10-18] MEDS ORDERED: ALBUMIN HUMAN 25GM/100ML (25%) IV NR (13:00)
[2020-10-18] MEDS: MAGNESIUM OXIDE 400MG TABLET PO SCH (13:45)
[2020-10-18] MEDS: SODIUM CHLORIDE 0.45% 1,000 ML IV SCH (17:31)
[2020-10-18] MEDS: LEVOFLOXACIN 500MG PREMIX 100 ML IV SCH (20:58)
[2020-10-19] VITALS (91 sets, daily range): BP systolic 80–114; BP diastolic 46–62
[2020-10-19] MEDS: AMIODARONE HCL 900 MG in DEXT 5% WATER 482 ML IV PRN (01:49)
[2020-10-19] MEDS: IPRATROPIUM BROMIDE (0.02%) 0.5MG/2.5ML NEB HHN SCH ×4 (02:05→20:13)
[2020-10-19] MEDS: MORPHINE SULFATE 2 MG/ML CPJ (NOT FOR IM USE) IV PRN ×3 (03:02→22:26)
[2020-10-19] MEDS: BLOOD SUGAR DIAGNOSTIC STRIP TEST SCH ×4 (05:42→23:26)
[2020-10-19] MEDS: INSULIN LISPRO 100 UNITS/ML SUBCUT SCH ×4 (05:42→23:26)
[2020-10-19 05:43] LABS: HEMATOCRIT. 30.8 % (36.0-48.0); HEMOGLOBIN. 9.6 g/dL (12.0-16.0); MEAN CORPUSCULAR HEMOGLOBIN 26.8 pg (28.0-32.0); MEAN CORPUSCULAR VOLUME 86.3 fL (81.0-99.0); MEAN PLATELET VOLUME 8.2 fl (7.4-10.4); PLATELET 425 x1000/uL (130-400); RED BLOOD CELL COUNT 3.57 mill/uL (4.2-5.4); RED CELL DISTRIBUTION WIDTH 18.1 % (11.6-14.6)
[2020-10-19 05:45] LABS: CHLORIDE 113 mEq/L (98-107)
[2020-10-19] MEDS: SODIUM CHLORIDE 0.45% 1,000 ML IV SCH (06:50)
[2020-10-19 07:28] LABS: PLATELET ESTIMATE SLIGHTLY INCREASED
[2020-10-19 08:55] LABS: BG BASE EXCESS -3.4 mmol/L (-2.0-2.0); BG CARBOXYHEMOGLOBIN 0.3 % (0.5-1.5); BG DEOXYHEMOGLOBIN 1.9 % (0.0-5.0); BG FRACTION INSPIRED OXYGEN 50; BG HCO3 ACT 20.2 mmol/L (22.0-26.0); BG METHEMOGLOBIN 0.3 % (0.0-1.5); BG OXYGEN SATURATION 98.1 % (92.0-98.5); BG OXYHEMOGLOBIN 97.5 % (94.0-97.0); BG PCO2 31.2 mmHg (35.0-45.0); BG PH 7.428 (7.350-7.450); BG PO2 107.7 mmHg (75.0-100.0); BG SAMPLE SITE RIGHT FEMORAL; BG TOTAL HEMOGLOBIN 10.4 g/dL (12.0-18.0); BG TOTAL RESPIRATORY RATE 32 b/min; BG VENT MODE MASK - BIPAP
[2020-10-19] MEDS: MAGNESIUM OXIDE 400MG TABLET PO SCH (09:00)
[2020-10-19] MEDS: ENOXAPARIN 80MG/0.8ML SYR SUBCUT SCH ×2 (09:37→20:48)
[2020-10-19] MEDS: PANTOPRAZOLE SODIUM 40 MG/VIAL IV SCH (09:38)
[2020-10-19] MEDS ORDERED: FUROSEMIDE 40MG/4ML VIAL IVP NR (10:30)
[2020-10-19] MEDS ORDERED: DOBUTAMINE 250MG PREMIX 250 ML IV SCH (10:30)
[2020-10-19] MEDS ORDERED: ALBUMIN HUMAN 12.5GM/50ML (25%) IV NR (10:30)
[2020-10-19] MEDS: FUROSEMIDE 40MG/4ML VIAL IVP SCH (10:43)
[2020-10-19] MEDS: VANCOMYCIN 1250MG in DEXTROSE 5% WATER 250ML IV SCH (12:35)
[2020-10-19] MEDS ORDERED: METOPROLOL TARTRATE 5MG/5ML VIAL IV NR (13:30)
[2020-10-19] MEDS: DOBUTAMINE 250MG PREMIX 250 ML IV SCH ×2 (16:34→23:28)
[2020-10-19] MEDS: METOPROLOL TARTRATE 5MG/5ML VIAL IV SCH ×2 (18:38→23:26)
[2020-10-19] MEDS: LEVOFLOXACIN 500MG PREMIX 100 ML IV SCH (20:48)
[2020-10-20] VITALS (93 sets, daily range): BP systolic 89–112; BP diastolic 43–69
[2020-10-20] MEDS: IPRATROPIUM BROMIDE (0.02%) 0.5MG/2.5ML NEB HHN SCH ×4 (02:01→20:48)
[2020-10-20] MEDS: BLOOD SUGAR DIAGNOSTIC STRIP TEST SCH ×4 (05:36→23:13)
[2020-10-20] MEDS: INSULIN LISPRO 100 UNITS/ML SUBCUT SCH ×4 (05:36→23:13)
[2020-10-20] MEDS: VANCOMYCIN 1250MG in DEXTROSE 5% WATER 250ML IV SCH ×2 (05:38→23:13)
[2020-10-20] MEDS: DEXTROSE 50% WATER 50ML SYRINGE IV PRN ×2 (05:38→18:17)
[2020-10-20] MEDS: METOPROLOL TARTRATE 5MG/5ML VIAL IV SCH ×3 (05:38→18:17)
[2020-10-20 05:45] LABS: CHLORIDE 108 mEq/L (98-107)
[2020-10-20] MEDS: MORPHINE SULFATE 2 MG/ML CPJ (NOT FOR IM USE) IV PRN ×2 (05:50→12:42)
[2020-10-20 05:58] LABS: BASOPHILS % 0.2 % (0.0-2.0); EOSINOPHILS % 0.6 % (0.0-5.0); HEMATOCRIT. 27.8 % (36.0-48.0); HEMOGLOBIN. 9.1 g/dL (12.0-16.0); LYMPHOCYTES % 8.3 % (20.0-50.0); MEAN CORPUSCULAR HEMOGLOBIN 26.9 pg (28.0-32.0); MEAN CORPUSCULAR VOLUME 82.6 fL (81.0-99.0); MEAN PLATELET VOLUME 7.9 fl (7.4-10.4); MONOCYTES % 2.2 % (2.0-8.0); NEUTROPHILS % 88.7 % (40.0-76.0); PLATELET 264 x1000/uL (130-400); RED BLOOD CELL COUNT 3.37 mill/uL (4.2-5.4); RED CELL DISTRIBUTION WIDTH 17.3 % (11.6-14.6)
[2020-10-20] MEDS ORDERED: IOHEXOL-350 100 ML BOTTLE ONE (06:27)
[2020-10-20] MEDS ORDERED: POTASSIUM CHLORIDE 20MEQ/PACKET PO NR (07:00)
[2020-10-20] MEDS ORDERED: POTASSIUM CHLORIDE INJ 40 MEQ in DEXT 5% WATER 250 ML IV NR (09:00)
[2020-10-20] MEDS: PANTOPRAZOLE SODIUM 40 MG/VIAL IV SCH (09:08)
[2020-10-20] MEDS: ENOXAPARIN 80MG/0.8ML SYR SUBCUT SCH ×2 (09:08→20:28)
[2020-10-20] MEDS: FUROSEMIDE 40MG/4ML VIAL IVP SCH (09:08)
[2020-10-20] MEDS: MAGNESIUM OXIDE 400MG TABLET PO SCH (09:08)
[2020-10-20] MEDS: DOBUTAMINE 250MG PREMIX 250 ML IV SCH ×2 (10:08→23:55)
[2020-10-20] MEDS: BISACODYL 10MG SUPP PR PRN (18:17)
[2020-10-20] MEDS: CARVEDILOL 3.125 MG TABLET PO SCH (20:28)
[2020-10-20] MEDS: LEVOFLOXACIN 500MG PREMIX 100 ML IV SCH (20:29)
[2020-10-21] VITALS (95 sets, daily range): BP systolic 85–105; BP diastolic 44–70
[2020-10-21] MEDS: METOPROLOL TARTRATE 5MG/5ML VIAL IV SCH ×3 (01:44→18:19)
[2020-10-21] MEDS: IPRATROPIUM BROMIDE (0.02%) 0.5MG/2.5ML NEB HHN SCH ×4 (02:19→20:11)
[2020-10-21] MEDS: MORPHINE SULFATE 2 MG/ML CPJ (NOT FOR IM USE) IV PRN ×3 (04:17→22:14)
[2020-10-21 05:07] LABS: BASOPHILS % 0.1 % (0.0-2.0); EOSINOPHILS % 0.4 % (0.0-5.0); HEMATOCRIT. 29.6 % (36.0-48.0); HEMOGLOBIN. 9.2 g/dL (12.0-16.0); LYMPHOCYTES % 8.2 % (20.0-50.0); MEAN CORPUSCULAR HEMOGLOBIN 26.9 pg (28.0-32.0); MEAN CORPUSCULAR VOLUME 86.7 fL (81.0-99.0); MEAN PLATELET VOLUME 7.7 fl (7.4-10.4); MONOCYTES % 4.7 % (2.0-8.0); NEUTROPHILS % 86.6 % (40.0-76.0); PLATELET 263 x1000/uL (130-400); RED BLOOD CELL COUNT 3.41 mill/uL (4.2-5.4); RED CELL DISTRIBUTION WIDTH 18.1 % (11.6-14.6)
[2020-10-21] MEDS: BLOOD SUGAR DIAGNOSTIC STRIP TEST SCH ×3 (05:12→18:40)
[2020-10-21] MEDS: INSULIN LISPRO 100 UNITS/ML SUBCUT SCH (05:13)
[2020-10-21 05:41] LABS: CHLORIDE 105 mEq/L (98-107)
[2020-10-21] MEDS: PANTOPRAZOLE SODIUM 40 MG/VIAL IV SCH (08:55)
[2020-10-21] MEDS: ENOXAPARIN 80MG/0.8ML SYR SUBCUT SCH ×2 (08:56→21:07)
[2020-10-21] MEDS: MAGNESIUM OXIDE 400MG TABLET PO SCH (08:56)
[2020-10-21] MEDS: FUROSEMIDE 40MG/4ML VIAL IVP SCH (08:58)
[2020-10-21] MEDS: CARVEDILOL 3.125 MG TABLET PO SCH ×2 (08:59→21:08)
[2020-10-21] MEDS ORDERED: POTASSIUM CHLORIDE 20MEQ/PACKET PO NR (10:00)
[2020-10-21] MEDS: DEXT 5%/0.45% NACL 1000ML 1,000 ML IV SCH (16:08)
[2020-10-21] MEDS: DOBUTAMINE 250MG PREMIX 250 ML IV SCH (21:01)
[2020-10-21] MEDS: VANCOMYCIN 1 G PREMIX 200 ML IV SCH (21:07)
[2020-10-21] MEDS: LEVOFLOXACIN 500MG PREMIX 100 ML IV SCH (21:08)
[2020-10-22] VITALS (56 sets, daily range): BP systolic 88–111; BP diastolic 43–64
[2020-10-22] MEDS: ONDANSETRON HCL 4MG/2ML INJ IV PRN ×2 (01:24→08:33)
[2020-10-22] MEDS: METOPROLOL TARTRATE 5MG/5ML VIAL IV SCH ×3 (02:20→17:53)
[2020-10-22] MEDS: MORPHINE SULFATE 2 MG/ML CPJ (NOT FOR IM USE) IV PRN (02:21)
[2020-10-22] MEDS: IPRATROPIUM BROMIDE (0.02%) 0.5MG/2.5ML NEB HHN SCH ×4 (02:46→21:09)
[2020-10-22 05:03] LABS: BASOPHILS % 0.7 % (0.0-2.0); EOSINOPHILS % 0.9 % (0.0-5.0); HEMATOCRIT. 27.9 % (36.0-48.0); HEMOGLOBIN. 9.3 g/dL (12.0-16.0); LYMPHOCYTES % 11.8 % (20.0-50.0); MEAN CORPUSCULAR HEMOGLOBIN 26.8 pg (28.0-32.0); MEAN CORPUSCULAR VOLUME 80.7 fL (81.0-99.0); MONOCYTES % 5.6 % (2.0-8.0); PLATELET 279 x1000/uL (130-400); RED BLOOD CELL COUNT 3.45 mill/uL (4.2-5.4); RED CELL DISTRIBUTION WIDTH 17.4 % (11.6-14.6)
[2020-10-22 05:12] LABS: CHLORIDE 104 mEq/L (98-107)
[2020-10-22] MEDS: DEXT 5%/0.45% NACL 1000ML 1,000 ML IV SCH ×2 (06:00→12:28)
[2020-10-22] MEDS: BLOOD SUGAR DIAGNOSTIC STRIP TEST SCH ×5 (06:00→23:22)
[2020-10-22] MEDS: CARVEDILOL 3.125 MG TABLET PO SCH ×2 (08:14→20:54)
[2020-10-22] MEDS: ENOXAPARIN 80MG/0.8ML SYR SUBCUT SCH ×2 (08:33→20:55)
[2020-10-22] MEDS: PANTOPRAZOLE SODIUM 40 MG/VIAL IV SCH (08:33)
[2020-10-22] MEDS: MAGNESIUM OXIDE 400MG TABLET PO SCH (08:33)
[2020-10-22] MEDS: FUROSEMIDE 40MG/4ML VIAL IVP SCH (08:33)
[2020-10-22] MEDS: KETOROLAC 15MG/ML VIAL IV PRN ×3 (09:01→18:20)
[2020-10-22] MEDS ORDERED: LACTULOSE 20G/30ML UDC PO SCH (10:30)
[2020-10-22] MEDS ORDERED: POTASSIUM CHLORIDE 20MEQ TABLET SR PO SCH (11:00)
[2020-10-22] MEDS: DOCUSATE SODIUM SUGAR FREE 100MG/10ML UDC PO SCH (11:48)
[2020-10-22] MEDS: VANCOMYCIN 1 G PREMIX 200 ML IV SCH (14:38)
[2020-10-22] MEDS: HYDROCODONE/ACETAMINOPHEN 5/325MG TABLET PO PRN ×2 (14:48→22:38)
[2020-10-22] MEDS: DOBUTAMINE 250MG PREMIX 250 ML IV SCH (19:22)
[2020-10-22] MEDS: LEVOFLOXACIN 500MG PREMIX 100 ML IV SCH (20:54)
[2020-10-22] MEDS ORDERED: LACTULOSE 20G/30ML UDC PO PRN (21:00)
[2020-10-23] VITALS (12 sets, daily range): BP systolic 88–145; BP diastolic 48–108
[2020-10-23] MEDS: METOPROLOL TARTRATE 5MG/5ML VIAL IV SCH ×3 (02:04→17:32)
[2020-10-23] MEDS: IPRATROPIUM BROMIDE (0.02%) 0.5MG/2.5ML NEB HHN SCH ×4 (02:25→20:00)
[2020-10-23 04:41] LABS: BASOPHILS % 0.6 % (0.0-2.0); EOSINOPHILS % 2.6 % (0.0-5.0); HEMATOCRIT. 26.4 % (36.0-48.0); HEMOGLOBIN. 8.7 g/dL (12.0-16.0); LYMPHOCYTES % 16.8 % (20.0-50.0); MEAN CORPUSCULAR VOLUME 81.6 fL (81.0-99.0); MEAN PLATELET VOLUME 8.4 fl (7.4-10.4); MONOCYTES % 7.1 % (2.0-8.0); NEUTROPHILS % 72.9 % (40.0-76.0); PLATELET 249 x1000/uL (130-400); RED BLOOD CELL COUNT 3.23 mill/uL (4.2-5.4); RED CELL DISTRIBUTION WIDTH 17.3 % (11.6-14.6)
[2020-10-23 04:47] LABS: CHLORIDE 104 mEq/L (98-107)
[2020-10-23] MEDS: HYDROCODONE/ACETAMINOPHEN 5/325MG TABLET PO PRN ×4 (05:05→20:27)
[2020-10-23] MEDS: BLOOD SUGAR DIAGNOSTIC STRIP TEST SCH ×2 (06:41→12:25)
[2020-10-23] MEDS: FUROSEMIDE 40MG/4ML VIAL IVP SCH (09:23)
[2020-10-23] MEDS: MAGNESIUM OXIDE 400MG TABLET PO SCH (09:23)
[2020-10-23] MEDS: PANTOPRAZOLE SODIUM 40 MG/VIAL IV SCH (09:23)
[2020-10-23] MEDS: DOCUSATE SODIUM SUGAR FREE 100MG/10ML UDC PO SCH (09:23)
[2020-10-23] MEDS: CARVEDILOL 3.125 MG TABLET PO SCH ×2 (09:24→20:27)
[2020-10-23] MEDS: ENOXAPARIN 80MG/0.8ML SYR SUBCUT SCH ×2 (09:24→20:26)
[2020-10-23] MEDS: ONDANSETRON HCL 4MG/2ML INJ IV PRN (12:57)
[2020-10-23] MEDS: DEXT 5%/0.45% NACL 1000ML 1,000 ML IV SCH (12:57)
[2020-10-23] MEDS: DOBUTAMINE 250MG PREMIX 250 ML IV SCH (16:16)
[2020-10-23] MEDS: BISACODYL 10MG SUPP PR PRN (17:32)
[2020-10-23] MEDS: LEVOFLOXACIN 500MG PREMIX 100 ML IV SCH (20:27)
[2020-10-23 21:10] LABS: TOTAL IRON BINDING CAPACITY 90 ug/dL (250-450)
[2020-10-24] VITALS (12 sets, daily range): BP systolic 80–96; BP diastolic 31–54
[2020-10-24] MEDS: METOPROLOL TARTRATE 5MG/5ML VIAL IV SCH ×3 (01:17→18:00)
[2020-10-24] MEDS: IPRATROPIUM BROMIDE (0.02%) 0.5MG/2.5ML NEB HHN SCH ×4 (01:59→20:52)
[2020-10-24] MEDS: ONDANSETRON HCL 4MG/2ML INJ IV PRN (06:03)
[2020-10-24 06:09] LABS: HEMATOCRIT. 28.9 % (36.0-48.0); HEMOGLOBIN. 9.5 g/dL (12.0-16.0); MEAN CORPUSCULAR HEMOGLOBIN 26.9 pg (28.0-32.0); MEAN PLATELET VOLUME 8.5 fl (7.4-10.4); PLATELET 350 x1000/uL (130-400); RED BLOOD CELL COUNT 3.53 mill/uL (4.2-5.4); RED CELL DISTRIBUTION WIDTH 17.8 % (11.6-14.6)
[2020-10-24 06:18] LABS: CHLORIDE 103 mEq/L (98-107)
[2020-10-24] MEDS ORDERED: POTASSIUM CHLORIDE INJ 40 MEQ in DEXT 5% WATER 250 ML IV ONE (07:30)
[2020-10-24] MEDS: HYDROCODONE/ACETAMINOPHEN 5/325MG TABLET PO PRN ×5 (07:34→23:54)
[2020-10-24] MEDS: FUROSEMIDE 40MG/4ML VIAL IVP SCH (08:06)
[2020-10-24] MEDS: MAGNESIUM OXIDE 400MG TABLET PO SCH (08:06)
[2020-10-24] MEDS: PANTOPRAZOLE SODIUM 40 MG/VIAL IV SCH (08:06)
[2020-10-24] MEDS: CARVEDILOL 3.125 MG TABLET PO SCH ×2 (08:06→21:41)
[2020-10-24] MEDS: ENOXAPARIN 80MG/0.8ML SYR SUBCUT SCH ×2 (08:25→21:37)
[2020-10-24] MEDS: DOCUSATE SODIUM SUGAR FREE 100MG/10ML UDC PO SCH (08:25)
[2020-10-24] MEDS ORDERED: HYDROCODONE/ACETAMINOPHEN 5/325MG TABLET ONE (09:49)
[2020-10-24 14:19] LABS: PLATELET ESTIMATE NORMAL
[2020-10-24 14:20] LABS: ATYPICAL LYMPHOCYTES 0
[2020-10-24] MEDS: DEXT 5%/0.45% NACL 1000ML 1,000 ML IV SCH (18:08)
[2020-10-24] MEDS ORDERED: POTASSIUM CHLORIDE INJ 40 MEQ in DEXT 5% WATER 250 ML IV NR (20:00)
[2020-10-24] MEDS: LEVOFLOXACIN 500MG PREMIX 100 ML IV SCH (21:37)
[2020-10-25] VITALS (11 sets, daily range): BP systolic 82–121; BP diastolic 44–78
[2020-10-25] MEDS: IPRATROPIUM BROMIDE (0.02%) 0.5MG/2.5ML NEB HHN SCH ×4 (01:04→19:55)
[2020-10-25] MEDS: METOPROLOL TARTRATE 5MG/5ML VIAL IV SCH ×2 (01:17→10:00)
[2020-10-25 06:44] LABS: BASOPHILS % 0.4 % (0.0-2.0); EOSINOPHILS % 1.7 % (0.0-5.0); HEMATOCRIT. 28.4 % (36.0-48.0); HEMOGLOBIN. 9.1 g/dL (12.0-16.0); LYMPHOCYTES % 14.7 % (20.0-50.0); MEAN CORPUSCULAR HEMOGLOBIN 26.5 pg (28.0-32.0); MEAN CORPUSCULAR VOLUME 82.8 fL (81.0-99.0); MEAN PLATELET VOLUME 8.5 fl (7.4-10.4); NEUTROPHILS % 77.2 % (40.0-76.0); PLATELET 432 x1000/uL (130-400); RED BLOOD CELL COUNT 3.43 mill/uL (4.2-5.4); RED CELL DISTRIBUTION WIDTH 17.3 % (11.6-14.6)
[2020-10-25 06:55] LABS: CHLORIDE 106 mEq/L (98-107)
[2020-10-25] MEDS: DOCUSATE SODIUM SUGAR FREE 100MG/10ML UDC PO SCH (09:00)
[2020-10-25] MEDS: CARVEDILOL 3.125 MG TABLET PO SCH ×2 (09:00→20:57)
[2020-10-25] MEDS ORDERED: POTASSIUM CHLORIDE 20MEQ TABLET SR PO NR (09:00)
[2020-10-25] MEDS: HYDROCODONE/ACETAMINOPHEN 5/325MG TABLET PO PRN ×3 (09:39→20:58)
[2020-10-25] MEDS: PANTOPRAZOLE SODIUM 40 MG/VIAL IV SCH (09:40)
[2020-10-25] MEDS: FUROSEMIDE 40MG/4ML VIAL IVP SCH (09:40)
[2020-10-25] MEDS: ENOXAPARIN 80MG/0.8ML SYR SUBCUT SCH ×2 (09:40→20:57)
[2020-10-25] MEDS: MAGNESIUM OXIDE 400MG TABLET PO SCH (09:41)
[2020-10-25] MEDS: DEXT 5%/0.45% NACL 1000ML 1,000 ML IV SCH (13:35)
[2020-10-25] MEDS: ONDANSETRON HCL 4MG/2ML INJ IV PRN (18:49)
[2020-10-25] MEDS: LEVOFLOXACIN 500MG PREMIX 100 ML IV SCH (21:09)
[2020-10-26] VITALS (12 sets, daily range): BP systolic 79–99; BP diastolic 30–54
[2020-10-26] MEDS: HYDROCODONE/ACETAMINOPHEN 5/325MG TABLET PO PRN ×5 (00:57→19:18)
[2020-10-26] MEDS: IPRATROPIUM BROMIDE (0.02%) 0.5MG/2.5ML NEB HHN SCH ×4 (01:50→20:34)
[2020-10-26] MEDS: ONDANSETRON HCL 4MG/2ML INJ IV PRN (02:54)
[2020-10-26 07:22] LABS: CHLORIDE 104 mEq/L (98-107)
[2020-10-26 07:41] LABS: HEMATOCRIT. 28.1 % (36.0-48.0); HEMOGLOBIN. 9.3 g/dL (12.0-16.0); MEAN CORPUSCULAR HEMOGLOBIN 27.3 pg (28.0-32.0); MEAN PLATELET VOLUME 8.8 fl (7.4-10.4); PLATELET 420 x1000/uL (130-400); RED BLOOD CELL COUNT 3.42 mill/uL (4.2-5.4)
[2020-10-26] MEDS: DOCUSATE SODIUM SUGAR FREE 100MG/10ML UDC PO SCH (09:00)
[2020-10-26] MEDS: CARVEDILOL 3.125 MG TABLET PO SCH ×2 (09:00→20:42)
[2020-10-26] MEDS: FUROSEMIDE 40MG/4ML VIAL IVP SCH (09:47)
[2020-10-26] MEDS: ENOXAPARIN 80MG/0.8ML SYR SUBCUT SCH ×2 (09:48→20:43)
[2020-10-26] MEDS: PANTOPRAZOLE SODIUM 40 MG/VIAL IV SCH (09:48)
[2020-10-26] MEDS: MAGNESIUM OXIDE 400MG TABLET PO SCH (09:49)
[2020-10-26] MEDS: DEXT 5%/0.45% NACL 1000ML 1,000 ML IV SCH (11:56)
[2020-10-26] MEDS: MIDODRINE HCL 5MG TABLET PO SCH ×2 (13:59→19:18)
[2020-10-26 22:23] LABS: PLATELET ESTIMATE INCREASED
[2020-10-27] VITALS (13 sets, daily range): BP systolic 81–107; BP diastolic 40–54
[2020-10-27] MEDS: IPRATROPIUM BROMIDE (0.02%) 0.5MG/2.5ML NEB HHN SCH ×4 (01:14→21:55)
[2020-10-27] MEDS ORDERED: VANCOMYCIN 1250MG in DEXTROSE 5% WATER 250ML IV NR (02:30)
[2020-10-27] MEDS: DEXT 5%/0.45% NACL 1000ML 1,000 ML IV SCH (06:00)
[2020-10-27] MEDS: HYDROCODONE/ACETAMINOPHEN 5/325MG TABLET PO PRN ×3 (06:30→17:02)
[2020-10-27 07:37] LABS: BASOPHILS % 0.7 % (0.0-2.0); EOSINOPHILS % 0.6 % (0.0-5.0); HEMATOCRIT. 26.5 % (36.0-48.0); HEMOGLOBIN. 8.8 g/dL (12.0-16.0); LYMPHOCYTES % 15.7 % (20.0-50.0); MEAN CORPUSCULAR HEMOGLOBIN 27.3 pg (28.0-32.0); MEAN CORPUSCULAR VOLUME 82.2 fL (81.0-99.0); MEAN PLATELET VOLUME 8.4 fl (7.4-10.4); MONOCYTES % 6.3 % (2.0-8.0); NEUTROPHILS % 76.7 % (40.0-76.0); PLATELET 473 x1000/uL (130-400); RED BLOOD CELL COUNT 3.23 mill/uL (4.2-5.4); RED CELL DISTRIBUTION WIDTH 17.6 % (11.6-14.6)
[2020-10-27 08:02] LABS: CHLORIDE 104 mEq/L (98-107)
[2020-10-27] MEDS: CARVEDILOL 3.125 MG TABLET PO SCH ×2 (09:00→20:36)
[2020-10-27] MEDS: MAGNESIUM OXIDE 400MG TABLET PO SCH (10:25)
[2020-10-27] MEDS: PANTOPRAZOLE SODIUM 40 MG/VIAL IV SCH (10:25)
[2020-10-27] MEDS: DOCUSATE SODIUM SUGAR FREE 100MG/10ML UDC PO SCH (10:25)
[2020-10-27] MEDS: ENOXAPARIN 80MG/0.8ML SYR SUBCUT SCH ×2 (10:25→20:38)
[2020-10-27] MEDS: FUROSEMIDE 40MG TABLET PO SCH (10:26)
[2020-10-27] MEDS: MIDODRINE HCL 5MG TABLET PO SCH ×3 (10:29→21:13)
[2020-10-27] MEDS ORDERED: POTASSIUM CHLORIDE 20MEQ TABLET SR PO NR (12:00)
[2020-10-27] MEDS: VANCOMYCIN 1 G PREMIX 200 ML IV SCH (15:48)
[2020-10-27] MEDS: ONDANSETRON HCL 4MG/2ML INJ IV PRN (17:08)
[2020-10-27] MEDS ORDERED: POTASSIUM CHLORIDE 20MEQ/PACKET PO NR (21:00)
[2020-10-28] VITALS (11 sets, daily range): BP systolic 82–96; BP diastolic 43–56
[2020-10-28] MEDS: DEXT 5%/0.45% NACL 1000ML 1,000 ML IV SCH (01:25)
[2020-10-28] MEDS: IPRATROPIUM BROMIDE (0.02%) 0.5MG/2.5ML NEB HHN SCH ×4 (02:03→20:36)
[2020-10-28] MEDS: MIDODRINE HCL 5MG TABLET PO SCH ×3 (05:05→21:44)
[2020-10-28 05:32] LABS: CHLORIDE 106 mEq/L (98-107)
[2020-10-28 06:26] LABS: HEMATOCRIT. 27.6 % (36.0-48.0); HEMOGLOBIN. 8.9 g/dL (12.0-16.0); MEAN CORPUSCULAR HEMOGLOBIN 26.7 pg (28.0-32.0); MEAN PLATELET VOLUME 8.5 fl (7.4-10.4); PLATELET 590 x1000/uL (130-400); RED BLOOD CELL COUNT 3.32 mill/uL (4.2-5.4); RED CELL DISTRIBUTION WIDTH 17.3 % (11.6-14.6)
[2020-10-28] MEDS: DOCUSATE SODIUM SUGAR FREE 100MG/10ML UDC PO SCH (08:57)
[2020-10-28] MEDS: CARVEDILOL 3.125 MG TABLET PO SCH ×2 (09:00→21:00)
[2020-10-28] MEDS: HYDROCODONE/ACETAMINOPHEN 5/325MG TABLET PO PRN ×3 (09:01→23:40)
[2020-10-28] MEDS: MAGNESIUM OXIDE 400MG TABLET PO SCH (09:01)
[2020-10-28] MEDS: PANTOPRAZOLE SODIUM 40 MG/VIAL IV SCH (09:02)
[2020-10-28] MEDS: ENOXAPARIN 80MG/0.8ML SYR SUBCUT SCH ×2 (09:02→21:35)
[2020-10-28] MEDS ORDERED: ALBUMIN HUMAN 25GM/500ML (5%) IV ONE (13:00)
[2020-10-28] MEDS: VANCOMYCIN 1 G PREMIX 200 ML IV SCH (14:18)
[2020-10-28] MEDS: FUROSEMIDE 40MG TABLET PO SCH (14:30)
[2020-10-28 20:34] LABS: PLATELET ESTIMATE INCREASED
[2020-10-29] VITALS (16 sets, daily range): BP systolic 83–103; BP diastolic 35–58
[2020-10-29] MEDS: IPRATROPIUM BROMIDE (0.02%) 0.5MG/2.5ML NEB HHN SCH ×4 (01:49→21:14)
[2020-10-29 03:31] LABS: BASOPHILS % 0.6 % (0.0-2.0); EOSINOPHILS % 0.8 % (0.0-5.0); HEMATOCRIT. 29.6 % (36.0-48.0); HEMOGLOBIN. 9.6 g/dL (12.0-16.0); MEAN CORPUSCULAR HEMOGLOBIN 27.1 pg (28.0-32.0); MEAN CORPUSCULAR VOLUME 83.4 fL (81.0-99.0); MEAN PLATELET VOLUME 7.8 fl (7.4-10.4); MONOCYTES % 7.3 % (2.0-8.0); NEUTROPHILS % 75.3 % (40.0-76.0); PLATELET 618 x1000/uL (130-400); RED BLOOD CELL COUNT 3.55 mill/uL (4.2-5.4); RED CELL DISTRIBUTION WIDTH 17.4 % (11.6-14.6)
[2020-10-29 03:36] LABS: CHLORIDE 103 mEq/L (98-107)
[2020-10-29] MEDS: MIDODRINE HCL 5MG TABLET PO SCH ×3 (05:28→20:38)
[2020-10-29] MEDS: DEXT 5%/0.45% NACL 1000ML 1,000 ML IV SCH ×2 (05:28→18:39)
[2020-10-29] MEDS: FUROSEMIDE 40MG TABLET PO SCH (09:00)
[2020-10-29] MEDS ORDERED: POTASSIUM CHLORIDE 20MEQ TABLET SR PO NR (09:00)
[2020-10-29] MEDS: DOCUSATE SODIUM SUGAR FREE 100MG/10ML UDC PO SCH (09:00)
[2020-10-29] MEDS: CARVEDILOL 3.125 MG TABLET PO SCH ×2 (09:00→20:56)
[2020-10-29] MEDS ORDERED: POTASSIUM CHLORIDE INJ 40 MEQ in DEXT 5% WATER 250 ML IV NR (10:00)
[2020-10-29] MEDS: PANTOPRAZOLE SODIUM 40 MG/VIAL IV SCH (10:28)
[2020-10-29] MEDS: MAGNESIUM OXIDE 400MG TABLET PO SCH (10:28)
[2020-10-29] MEDS: HYDROCODONE/ACETAMINOPHEN 5/325MG TABLET PO PRN ×3 (10:28→20:44)
[2020-10-29] MEDS: ENOXAPARIN 80MG/0.8ML SYR SUBCUT SCH ×2 (10:29→20:37)
[2020-10-29] MEDS: ONDANSETRON HCL 4MG/2ML INJ IV PRN (10:37)
[2020-10-30] VITALS (14 sets, daily range): BP systolic 85–109; BP diastolic 21–59
[2020-10-30] MEDS: IPRATROPIUM BROMIDE (0.02%) 0.5MG/2.5ML NEB HHN SCH ×3 (02:14→13:45)
[2020-10-30] MEDS: MIDODRINE HCL 5MG TABLET PO SCH ×2 (05:22→14:57)
[2020-10-30] MEDS: DOCUSATE SODIUM SUGAR FREE 100MG/10ML UDC PO SCH (09:00)
[2020-10-30] MEDS: PANTOPRAZOLE SODIUM 40 MG/VIAL IV SCH (09:00)
[2020-10-30] MEDS: FUROSEMIDE 40MG TABLET PO SCH (09:03)
[2020-10-30] MEDS: MAGNESIUM OXIDE 400MG TABLET PO SCH (09:03)
[2020-10-30] MEDS: HYDROCODONE/ACETAMINOPHEN 5/325MG TABLET PO PRN (09:03)
[2020-10-30] MEDS: CARVEDILOL 3.125 MG TABLET PO SCH (09:04)
[2020-10-30] MEDS: ENOXAPARIN 80MG/0.8ML SYR SUBCUT SCH (09:07)
[2020-10-30] MEDS ORDERED: METOPROLOL TARTRATE 25MG TABLET PO SCH ×2 (11:30→14:00)
[2020-10-30 11:57] LABS: EOSINOPHILS % 0.4 % (0.0-5.0); HEMOGLOBIN. 8.3 g/dL (12.0-16.0); LYMPHOCYTES % 9.8 % (20.0-50.0); MEAN CORPUSCULAR HEMOGLOBIN 26.8 pg (28.0-32.0); MEAN CORPUSCULAR VOLUME 84.2 fL (81.0-99.0); MEAN PLATELET VOLUME 7.8 fl (7.4-10.4); MONOCYTES % 5.9 % (2.0-8.0); NEUTROPHILS % 82.9 % (40.0-76.0); PLATELET 643 x1000/uL (130-400); RED BLOOD CELL COUNT 3.09 mill/uL (4.2-5.4); RED CELL DISTRIBUTION WIDTH 17.6 % (11.6-14.6)
[2020-10-30 12:05] LABS: CHLORIDE 105 mEq/L (98-107)
[2020-10-30] MEDS ORDERED: ACETAMINOPHEN 325MG TABLET PO PRN (13:15)
[2020-10-30] MEDS ORDERED: POTASSIUM CHLORIDE 20MEQ TABLET SR PO NR (14:47)
[2020-10-30] MEDS: DEXT 5%/0.45% NACL 1000ML 1,000 ML IV SCH (14:58)
== END 2020-10-30 19:00 | DRG 720 ==
LOC: ER 20:03 → MICUSO 22:39 → EDBEDREQ 22:47 → EDBEDREQTM 22:47 → ENRESERV 10-17 01:13 → MICUSO 10-17 01:30 → MICUNO 10-18 06:34 → 5EST 10-22 10:50
PROVIDERS: ADMIT Internal Medicine; ATTEND Internal Medicine
PROC: 5A09357 Assistance with Respiratory Ventilation, Less than 24 Consecutive Hours, Continuous Positive Airway Pressure (ICD-10-PCS; 2020-10-18)
PROC: 05HY33Z Insertion of Infusion Device into Upper Vein, Percutaneous Approach (ICD-10-PCS; principal; 2020-10-21)
PROC: B54MZZA Ultrasonography of Right Upper Extremity Veins, Guidance (ICD-10-PCS; 2020-10-21)
DX: A41.9 Sepsis, unspecified organism (principal); J96.00 Acute respiratory failure, unspecified whether with hypoxia or hypercapnia; N17.0 Acute kidney failure with tubular necrosis; R65.21 Severe sepsis with septic shock; E43 Unspecified severe protein-calorie malnutrition; G93.41 Metabolic encephalopathy; I50.23 Acute on chronic systolic (congestive) heart failure; J18.9 Pneumonia, unspecified organism; R13.10 Dysphagia, unspecified; E11.649 Type 2 diabetes mellitus with hypoglycemia without coma; I47.1 Supraventricular tachycardia; D64.9 Anemia, unspecified; E83.42 Hypomagnesemia; E87.2 Acidosis; E87.6 Hypokalemia; G35 Multiple sclerosis; I42.0 Dilated cardiomyopathy; I82.411 Acute embolism and thrombosis of right femoral vein; K21.9 Gastro-esophageal reflux disease without esophagitis; K56.41 Fecal impaction; K80.20 Calculus of gallbladder without cholecystitis without obstruction; N13.6 Pyonephrosis; R54 Age-related physical debility; I82.431 Acute embolism and thrombosis of right popliteal vein; Z20.822 Contact with and (suspected) exposure to COVID-19; Z74.01 Bed confinement status; Z79.01 Long term (current) use of anticoagulants; Z79.899 Other long term (current) drug therapy; Z86.718 Personal history of other venous thrombosis and embolism; Z87.01 Personal history of pneumonia (recurrent); Z87.440 Personal history of urinary (tract) infections; Z88.0 Allergy status to penicillin; Z88.2 Allergy status to sulfonamides; Z88.8 Allergy status to other drugs, medicaments and biological substances; Z79.1 Long term (current) use of non-steroidal anti-inflammatories (NSAID); Z68.26 Body mass index [BMI] 26.0-26.9, adult
CPT/HCPCS: 36415; 36600; 70551; 71045; 71275; 74018; 74176; 76937; 80048; 80053; 80202; 81003; 82270; 82375; 82728; 82805; 82962; 83036; 83540; 83550; 83605; 83735; 83880; 84145; 84443; 84484; 85025; 87426; 92610; 93005; 93306; 93970; 94640; 94660; 97162; 97166; 99291; A6261; C1725; C9113; J0282; J1250; J1650; J1815; J1885; J1940; J1956; J2270; J2370; J2405; J3370; J3475; J3480; J3490; J7030; J7040; J7060; P9047; Q9967; U0003

== ENCOUNTER 2020-11-03 14:29 | Inpatient (IN) | payer MEDICAID ==
[~2020-11-03] VITALS: Ht 165.1 cm; Wt 78.0 kg
[2020-11-03 15:41] LABS: BG BASE EXCESS 3.1 mmol/L (-2.0-2.0); BG CARBOXYHEMOGLOBIN 0.3 % (0.5-1.5); BG DEOXYHEMOGLOBIN 5.4 % (0.0-5.0); BG FRACTION INSPIRED OXYGEN 21; BG HCO3 ACT 27.1 mmol/L (22.0-26.0); BG METHEMOGLOBIN 0.2 % (0.0-1.5); BG OXYGEN SATURATION 94.6 % (92.0-98.5); BG OXYHEMOGLOBIN 94.1 % (94.0-97.0); BG PCO2 38.9 mmHg (35.0-45.0); BG PH 7.461 (7.350-7.450); BG PO2 70.9 mmHg (75.0-100.0); BG SAMPLE SITE RIGHT RADIAL; BG TOTAL HEMOGLOBIN 10.3 g/dL (12.0-18.0); BG VENT MODE ROOM AIR
[2020-11-03] MEDS ORDERED: SODIUM CHLORIDE 0.9% 1,000 ML IV ONE ×2 (15:45→17:15)
[2020-11-03 15:51] LABS: INR 1.3; PROTHROMBIN TIME 13.3 sec (9.6-11.0)
[2020-11-03 16:12] LABS: HEMOGLOBIN. 9.8 g/dL (12.0-16.0); MEAN CORPUSCULAR HEMOGLOBIN 28.1 pg (28.0-32.0); MEAN CORPUSCULAR VOLUME 86.5 fL (81.0-99.0); PLATELET 615 x1000/uL (130-400); RED BLOOD CELL COUNT 3.47 mill/uL (4.2-5.4)
[2020-11-03 16:18] LABS: CHLORIDE 99 mEq/L (98-107)
[2020-11-03 16:38] LABS: PLATELET ESTIMATE INCREASED
[2020-11-03] MEDS ORDERED: VANCOMYCIN 1 G PREMIX 200 ML IV ONE (17:15)
[2020-11-03] MEDS ORDERED: PIPERACILLIN/TAZ 3.375G PREMIX 50 ML IV ONE (17:15)
[2020-11-03 18:19] LABS: CLARITY URINE TURBID (CLEAR); COLOR URINE YELLOW (YELLOW); KETONES URINE NEGATIVE (NEGATIVE); LEUKOCYTE ESTERASE URINE 3+ (NEGATIVE); NITRITE URINE NEGATIVE (NEGATIVE); OCCULT BLOOD URINE 2+ (NEGATIVE); PH URINE 5.5 (4.5-8.0); PROTEIN URINE 1+ (NEGATIVE); SPECIFIC GRAVITY URINE 1.015 (1.005-1.030); UROBILINOGEN URINE 0.2 E.U./dL (0.2-1.0)
[2020-11-03] MEDS ORDERED: LORAZEPAM 2MG/ML CPJ IV PRN (20:30)
[2020-11-03] MEDS ORDERED: HYDRALAZINE 20MG/ML VIAL IV PRN (20:30)
[2020-11-03] MEDS ORDERED: DEXTROSE 50% WATER 50ML SYRINGE IV PRN (20:30)
[2020-11-03] MEDS ORDERED: CLONIDINE 0.1MG TABLET PO PRN (20:30)
[2020-11-03] MEDS ORDERED: IPRATROPIUM/ALBUTEROL 0.5-3(2.5)MG/3ML NEB HHN PRN (20:30)
[2020-11-03] MEDS ORDERED: ONDANSETRON HCL 4MG/2ML INJ IV PRN (20:30)
[2020-11-03] MEDS ORDERED: MAGNESIUM/ALUMINUM HYDROXIDE/SIMETHICONE 30ML UDC PO PRN (20:30)
[2020-11-03] MEDS ORDERED: VANCOMYCIN 1 G PREMIX 200 ML IV SCH (20:30)
[2020-11-03] MEDS ORDERED: GUAIFENESIN 200MG/10ML SUGAR FREE UDC PO PRN (20:30)
[2020-11-03] MEDS: INSULIN LISPRO 100 UNITS/ML SUBCUT SCH (21:00)
[2020-11-03] MEDS: BLOOD SUGAR DIAGNOSTIC STRIP TEST SCH (21:00)
[2020-11-03 22:00] VITALS: BP 86/45
[2020-11-03] MEDS: DEXT 5%/0.9% NACL 1,000 ML IV SCH (22:21)
[2020-11-03] MEDS: SODIUM CHLORIDE 0.9% INJ 3ML FLUSH IVF SCH (22:34)
[2020-11-03] MEDS: ENOXAPARIN 40MG/0.4ML SYR SUBCUT SCH (22:34)
[2020-11-03] MEDS ORDERED: POTASSIUM CHLORIDE INJ 40 MEQ in DEXT 5% WATER 250 ML IV NR (23:30)
[2020-11-04] VITALS (89 sets, daily range): BP systolic 66–129; BP diastolic 24–99
[2020-11-04] MEDS ORDERED: VANCOMYCIN 750 MG PREMIX 150 ML IV SCH
[2020-11-04] MEDS: PHENYLEPHRINE 100 MG in DEXT 5% WATER 240 ML IV PRN (05:57)
[2020-11-04] MEDS ORDERED: NOREPINEPHRINE 8 MG in SODIUM CHLORIDE 0.9% 242 ML IV PRN (06:00)
[2020-11-04] MEDS: SODIUM CHLORIDE 0.9% INJ 3ML FLUSH IVF SCH ×2 (06:12→13:46)
[2020-11-04] MEDS: INSULIN LISPRO 100 UNITS/ML SUBCUT SCH ×4 (08:10→20:06)
[2020-11-04] MEDS: BLOOD SUGAR DIAGNOSTIC STRIP TEST SCH ×4 (08:10→20:06)
[2020-11-04] MEDS ORDERED: LIDOCAINE HCL 1% 20ML VIAL (Pyxis) INJ ONE (08:25)
[2020-11-04 09:09] LABS: HEMATOCRIT. 29.6 % (36.0-48.0); HEMOGLOBIN. 9.4 g/dL (12.0-16.0); MEAN CORPUSCULAR HEMOGLOBIN 27.7 pg (28.0-32.0); MEAN CORPUSCULAR VOLUME 87.2 fL (81.0-99.0); MEAN PLATELET VOLUME 8.4 fl (7.4-10.4); PLATELET 661 x1000/uL (130-400); RED BLOOD CELL COUNT 3.39 mill/uL (4.2-5.4); RED CELL DISTRIBUTION WIDTH 19.9 % (11.6-14.6)
[2020-11-04 09:10] LABS: CHLORIDE 108 mEq/L (98-107)
[2020-11-04 09:17] LABS: LDL CHOLESTEROL 27 mg/dL (5-100)
[2020-11-04 09:18] LABS: HDL CHOLESTEROL 21 mg/dL (40-59)
[2020-11-04 09:19] LABS: T4 FREE 1.21 ng/dL (0.76-1.46)
[2020-11-04] MEDS: DEXT 5%/0.9% NACL 1,000 ML IV SCH ×2 (09:24→23:40)
[2020-11-04] MEDS: HYDROCODONE/ACETAMINOPHEN 5/325MG TABLET PO PRN ×2 (09:24→17:06)
[2020-11-04 12:50] LABS: PLATELET ESTIMATE INCREASED
[2020-11-04] MEDS: AZTREONAM 1 G in DEXTROSE 5% WATER 50 ML IV SCH (16:34)
[2020-11-04] MEDS: AMIKACIN SULFATE 400 MG in SODIUM CHLORIDE 0.9% 100 ML IV SCH (17:06)
[2020-11-04] MEDS: DOCUSATE SODIUM 100MG CAPSULE PO PRN (17:50)
[2020-11-04] MEDS: ENOXAPARIN 40MG/0.4ML SYR SUBCUT SCH (20:41)
[2020-11-05] VITALS (95 sets, daily range): BP systolic 88–152; BP diastolic 16–107
[2020-11-05] MEDS: ACETAMINOPHEN 325MG TABLET PO PRN (00:26)
[2020-11-05 00:48] LABS: CREATINE KINASE MB FRACTION 1.9 ng/mL (0.5-3.6)
[2020-11-05] MEDS: PHENYLEPHRINE 100 MG in DEXT 5% WATER 240 ML IV PRN (01:04)
[2020-11-05] MEDS: MORPHINE SULFATE 2 MG/ML CPJ (NOT FOR IM USE) IV PRN ×4 (01:15→21:24)
[2020-11-05] MEDS: AMIKACIN SULFATE 400 MG in SODIUM CHLORIDE 0.9% 100 ML IV SCH ×2 (03:13→21:26)
[2020-11-05] MEDS: HYDROCODONE/ACETAMINOPHEN 5/325MG TABLET PO PRN (03:13)
[2020-11-05] MEDS: DIPHENHYDRAMINE 50MG/ML VIAL IV PRN (03:13)
[2020-11-05] MEDS: AZTREONAM 1 G in DEXTROSE 5% WATER 50 ML IV SCH ×2 (03:57→15:12)
[2020-11-05 05:54] LABS: BASOPHILS % 0.3 % (0.0-2.0); EOSINOPHILS % 0.7 % (0.0-5.0); HEMATOCRIT. 26.2 % (36.0-48.0); HEMOGLOBIN. 8.2 g/dL (12.0-16.0); LYMPHOCYTES % 12.5 % (20.0-50.0); MEAN CORPUSCULAR HEMOGLOBIN 27.2 pg (28.0-32.0); MEAN CORPUSCULAR VOLUME 87.2 fL (81.0-99.0); MEAN PLATELET VOLUME 7.6 fl (7.4-10.4); MONOCYTES % 8.3 % (2.0-8.0); NEUTROPHILS % 78.2 % (40.0-76.0); PLATELET 522 x1000/uL (130-400); RED BLOOD CELL COUNT 3.01 mill/uL (4.2-5.4); RED CELL DISTRIBUTION WIDTH 19.8 % (11.6-14.6)
[2020-11-05 05:58] LABS: CHLORIDE 109 mEq/L (98-107)
[2020-11-05 06:12] LABS: CREATINE KINASE 27 IU/L (26-192)
[2020-11-05 06:14] LABS: CREATINE KINASE MB FRACTION 2.2 ng/mL (0.5-3.6)
[2020-11-05] MEDS: BLOOD SUGAR DIAGNOSTIC STRIP TEST SCH ×4 (07:54→21:26)
[2020-11-05] MEDS: INSULIN LISPRO 100 UNITS/ML SUBCUT SCH ×4 (07:55→21:00)
[2020-11-05] MEDS ORDERED: POTASSIUM CHLORIDE INJ 40 MEQ in DEXT 5% WATER 250 ML IV NR (09:30)
[2020-11-05] MEDS ORDERED: POTASSIUM CHLORIDE 20MEQ TABLET SR PO NR (11:45)
[2020-11-05] MEDS ORDERED: MAGNESIUM 2 G PREMIX 50 ML IV SCH (12:00)
[2020-11-05] MEDS: DEXT 5%/0.9% NACL 1,000 ML IV SCH ×2 (12:14→21:28)
[2020-11-05] MEDS: DOCUSATE SODIUM 100MG CAPSULE PO PRN (15:12)
[2020-11-05] MEDS: ENOXAPARIN 40MG/0.4ML SYR SUBCUT SCH (22:21)
[2020-11-06] VITALS (99 sets, daily range): BP systolic 59–159; BP diastolic 24–97
[2020-11-06] MEDS: HYDROCODONE/ACETAMINOPHEN 5/325MG TABLET PO PRN ×4 (02:15→22:34)
[2020-11-06] MEDS: AZTREONAM 1 G in DEXTROSE 5% WATER 50 ML IV SCH ×3 (04:14→22:34)
[2020-11-06] MEDS: PHENYLEPHRINE 100 MG in DEXT 5% WATER 240 ML IV PRN (04:15)
[2020-11-06 05:30] LABS: BASOPHILS % 0.7 % (0.0-2.0); EOSINOPHILS % 2.6 % (0.0-5.0); HEMOGLOBIN. 7.8 g/dL (12.0-16.0); MEAN CORPUSCULAR HEMOGLOBIN 27.4 pg (28.0-32.0); MEAN CORPUSCULAR VOLUME 87.3 fL (81.0-99.0); MONOCYTES % 5.9 % (2.0-8.0); NEUTROPHILS % 75.8 % (40.0-76.0); PLATELET 406 x1000/uL (130-400); RED BLOOD CELL COUNT 2.87 mill/uL (4.2-5.4); RED CELL DISTRIBUTION WIDTH 19.9 % (11.6-14.6)
[2020-11-06 05:36] LABS: CHLORIDE 115 mEq/L (98-107)
[2020-11-06] MEDS: BLOOD SUGAR DIAGNOSTIC STRIP TEST SCH ×4 (07:39→20:44)
[2020-11-06] MEDS: INSULIN LISPRO 100 UNITS/ML SUBCUT SCH ×4 (07:40→21:13)
[2020-11-06] MEDS ORDERED: POTASSIUM CHLORIDE INJ 40 MEQ in DEXT 5% WATER 250 ML IV ONE (08:30)
[2020-11-06] MEDS: AMIKACIN SULFATE 400 MG in SODIUM CHLORIDE 0.9% 100 ML IV SCH (09:00)
[2020-11-06] MEDS: DEXT 5%/0.9% NACL 1,000 ML IV SCH ×2 (09:00→18:14)
[2020-11-06] MEDS ORDERED: MIDODRINE HCL 5MG TABLET PO SCH (09:00)
[2020-11-06] MEDS: MIDODRINE HCL 5MG TABLET PO SCH ×2 (14:13→21:12)
[2020-11-06] MEDS: ENOXAPARIN 40MG/0.4ML SYR SUBCUT SCH ×2 (21:00→21:14)
[2020-11-06] MEDS ORDERED: AMIKACIN SULFATE 300 MG in SODIUM CHLORIDE 0.9% 100 ML IV SCH (23:00)
[2020-11-07] VITALS (97 sets, daily range): BP systolic 64–154; BP diastolic 14–143
[2020-11-07] MEDS: ACETAMINOPHEN 325MG TABLET PO PRN (01:37)
[2020-11-07] MEDS: DEXT 5%/0.9% NACL 1,000 ML IV SCH ×3 (03:36→23:34)
[2020-11-07 05:43] LABS: CHLORIDE 115 mEq/L (98-107)
[2020-11-07 05:46] LABS: BASOPHILS % 0.3 % (0.0-2.0); EOSINOPHILS % 4.1 % (0.0-5.0); HEMATOCRIT. 23.8 % (36.0-48.0); HEMOGLOBIN. 7.8 g/dL (12.0-16.0); LYMPHOCYTES % 20.4 % (20.0-50.0); MEAN CORPUSCULAR HEMOGLOBIN 28.6 pg (28.0-32.0); MEAN CORPUSCULAR VOLUME 86.9 fL (81.0-99.0); MEAN PLATELET VOLUME 8.1 fl (7.4-10.4); MONOCYTES % 6.1 % (2.0-8.0); NEUTROPHILS % 69.1 % (40.0-76.0); PLATELET 354 x1000/uL (130-400); RED BLOOD CELL COUNT 2.74 mill/uL (4.2-5.4); RED CELL DISTRIBUTION WIDTH 19.7 % (11.6-14.6)
[2020-11-07] MEDS: AZTREONAM 1 G in DEXTROSE 5% WATER 50 ML IV SCH ×3 (06:22→22:10)
[2020-11-07] MEDS: MIDODRINE HCL 5MG TABLET PO SCH ×3 (06:22→21:37)
[2020-11-07] MEDS: BLOOD SUGAR DIAGNOSTIC STRIP TEST SCH ×4 (08:07→21:34)
[2020-11-07] MEDS: INSULIN LISPRO 100 UNITS/ML SUBCUT SCH ×4 (08:07→21:00)
[2020-11-07] MEDS: HYDROCODONE/ACETAMINOPHEN 5/325MG TABLET PO PRN ×2 (08:12→16:18)
[2020-11-07] MEDS ORDERED: SODIUM CHLORIDE 0.9% 1,000 ML IV ONE (08:30)
[2020-11-07] MEDS: MORPHINE SULFATE 2 MG/ML CPJ (NOT FOR IM USE) IV PRN (12:16)
[2020-11-07] MEDS ORDERED: DOCUSATE SODIUM 250MG CAPSULE PO SCH (14:15)
[2020-11-07] MEDS ORDERED: SORBITOL 70% SOLN 30ML PO SCH (14:15)
[2020-11-07] MEDS ORDERED: AMIODARONE HCL 900 MG in DEXT 5% WATER 482 ML IV PRN (17:00)
[2020-11-07] MEDS: SENNOSIDES/DOCUSATE SOD 8.6/50MG TABLET PO SCH (21:00)
[2020-11-07] MEDS: ENOXAPARIN 40MG/0.4ML SYR SUBCUT SCH (21:37)
[2020-11-07] MEDS ORDERED: POTASSIUM CHLORIDE INJ 40 MEQ in DEXT 5% WATER 250 ML IV SCH (23:00)
[2020-11-07] MEDS ORDERED: MAGNESIUM 2 G PREMIX 50 ML IV SCH (23:00)
[2020-11-08] VITALS (90 sets, daily range): BP systolic 93–147; BP diastolic 15–123
[2020-11-08 05:27] LABS: CHLORIDE 115 mEq/L (98-107)
[2020-11-08 05:28] LABS: BASOPHILS % 0.7 % (0.0-2.0); EOSINOPHILS % 5.3 % (0.0-5.0); HEMATOCRIT. 23.7 % (36.0-48.0); HEMOGLOBIN. 7.4 g/dL (12.0-16.0); LYMPHOCYTES % 16.9 % (20.0-50.0); MEAN CORPUSCULAR HEMOGLOBIN 27.3 pg (28.0-32.0); MEAN CORPUSCULAR VOLUME 86.9 fL (81.0-99.0); MEAN PLATELET VOLUME 7.8 fl (7.4-10.4); MONOCYTES % 4.6 % (2.0-8.0); NEUTROPHILS % 72.5 % (40.0-76.0); PLATELET 353 x1000/uL (130-400); RED BLOOD CELL COUNT 2.72 mill/uL (4.2-5.4); RED CELL DISTRIBUTION WIDTH 19.9 % (11.6-14.6)
[2020-11-08] MEDS: MIDODRINE HCL 5MG TABLET PO SCH ×3 (06:15→21:44)
[2020-11-08] MEDS: AZTREONAM 1 G in DEXTROSE 5% WATER 50 ML IV SCH ×3 (06:15→23:14)
[2020-11-08] MEDS: DOCUSATE SODIUM SUGAR FREE 100MG/10ML UDC PO SCH (07:43)
[2020-11-08] MEDS: POLYETHYLENE GLYCOL 3350 (17GM) 1 DOSE PACK PO SCH (07:44)
[2020-11-08] MEDS: INSULIN LISPRO 100 UNITS/ML SUBCUT SCH ×4 (08:20→20:37)
[2020-11-08] MEDS: BLOOD SUGAR DIAGNOSTIC STRIP TEST SCH ×4 (08:33→20:38)
[2020-11-08] MEDS: DEXT 5%/0.9% NACL 1,000 ML IV SCH ×2 (10:08→20:32)
[2020-11-08] MEDS ORDERED: POTASSIUM CHLORIDE INJ 40 MEQ in DEXT 5% WATER 250 ML IV SCH (11:00)
[2020-11-08] MEDS: MORPHINE SULFATE 2 MG/ML CPJ (NOT FOR IM USE) IV PRN ×2 (11:27→18:01)
[2020-11-08] MEDS: SENNOSIDES/DOCUSATE SOD 8.6/50MG TABLET PO SCH (20:32)
[2020-11-08] MEDS: ENOXAPARIN 40MG/0.4ML SYR SUBCUT SCH (21:44)
[2020-11-09] VITALS (40 sets, daily range): BP systolic 88–147; BP diastolic 54–73
[2020-11-09] MEDS ORDERED: MORPHINE SULFATE 2 MG/ML CPJ (NOT FOR IM USE) IV PRN (02:45)
[2020-11-09 06:01] LABS: HAPTOGLOBIN 113 mg/dL (30-200)
[2020-11-09] MEDS: MIDODRINE HCL 5MG TABLET PO SCH ×3 (06:11→21:31)
[2020-11-09] MEDS: AZTREONAM 1 G in DEXTROSE 5% WATER 50 ML IV SCH ×3 (06:12→22:38)
[2020-11-09] MEDS: DEXT 5%/0.9% NACL 1,000 ML IV SCH ×2 (06:12→16:26)
[2020-11-09] MEDS: BLOOD SUGAR DIAGNOSTIC STRIP TEST SCH ×3 (07:50→21:31)
[2020-11-09] MEDS: INSULIN LISPRO 100 UNITS/ML SUBCUT SCH ×3 (08:20→21:00)
[2020-11-09] MEDS: POLYETHYLENE GLYCOL 3350 (17GM) 1 DOSE PACK PO SCH (08:53)
[2020-11-09] MEDS: MORPHINE SULFATE 2 MG/ML CPJ (NOT FOR IM USE) IV PRN ×4 (08:54→22:21)
[2020-11-09] MEDS: DOCUSATE SODIUM SUGAR FREE 100MG/10ML UDC PO SCH ×2 (08:54→09:00)
[2020-11-09 10:15] LABS: CHLORIDE 116 mEq/L (98-107)
[2020-11-09] MEDS ORDERED: POTASSIUM CHLORIDE 20MEQ TABLET SR PO NR (10:30)
[2020-11-09 10:33] LABS: BASOPHILS % 0.4 % (0.0-2.0); EOSINOPHILS % 3.9 % (0.0-5.0); HEMATOCRIT. 27.5 % (36.0-48.0); LYMPHOCYTES % 18.1 % (20.0-50.0); MEAN PLATELET VOLUME 8.3 fl (7.4-10.4); MONOCYTES % 4.8 % (2.0-8.0); NEUTROPHILS % 72.8 % (40.0-76.0); PLATELET 393 x1000/uL (130-400); RED BLOOD CELL COUNT 3.09 mill/uL (4.2-5.4)
[2020-11-09 10:34] LABS: HEMOGLOBIN. 8.6 g/dL (12.0-16.0)
[2020-11-09] MEDS: ACETAMINOPHEN 325MG TABLET PO PRN (19:12)
[2020-11-09] MEDS: SENNOSIDES/DOCUSATE SOD 8.6/50MG TABLET PO SCH (21:31)
[2020-11-10] VITALS: BP 112/48
[2020-11-10] MEDS: DEXT 5%/0.9% NACL 1,000 ML IV SCH ×2 (02:54→12:28)
[2020-11-10] MEDS: MORPHINE SULFATE 2 MG/ML CPJ (NOT FOR IM USE) IV PRN ×4 (02:54→20:36)
[2020-11-10] MEDS: DIPHENHYDRAMINE 50MG/ML VIAL IV PRN (03:34)
[2020-11-10 04:00] VITALS: BP 118/56
[2020-11-10 06:49] LABS: BASOPHILS % 0.5 % (0.0-2.0); HEMATOCRIT. 27.6 % (36.0-48.0); HEMOGLOBIN. 8.4 g/dL (12.0-16.0); LYMPHOCYTES % 16.3 % (20.0-50.0); MEAN CORPUSCULAR VOLUME 91.7 fL (81.0-99.0); MEAN PLATELET VOLUME 8.6 fl (7.4-10.4); MONOCYTES % 4.2 % (2.0-8.0); PLATELET 269 x1000/uL (130-400); RED BLOOD CELL COUNT 3.01 mill/uL (4.2-5.4); RED CELL DISTRIBUTION WIDTH 20.9 % (11.6-14.6)
[2020-11-10] MEDS: MIDODRINE HCL 5MG TABLET PO SCH ×3 (06:49→21:08)
[2020-11-10] MEDS: BLOOD SUGAR DIAGNOSTIC STRIP TEST SCH ×4 (06:49→20:22)
[2020-11-10] MEDS: AZTREONAM 1 G in DEXTROSE 5% WATER 50 ML IV SCH ×2 (06:50→15:20)
[2020-11-10] MEDS: INSULIN LISPRO 100 UNITS/ML SUBCUT SCH ×4 (07:02→20:22)
[2020-11-10 07:12] LABS: CHLORIDE 119 mEq/L (98-107)
[2020-11-10 07:18] LABS: TOTAL IRON BINDING CAPACITY 119 ug/dL (250-450)
[2020-11-10 07:35] LABS: FOLIC ACID (FOLATE) SERUM 2.9 ng/mL (>5.38)
[2020-11-10 08:00] VITALS: BP 118/65
[2020-11-10] MEDS: DOCUSATE SODIUM SUGAR FREE 100MG/10ML UDC PO SCH (09:00)
[2020-11-10 09:10] LABS: KAPPA/LAMBDA RATIO 1.25 (0.26-1.65); LAMBDA LT CHAINS FREE SERUM 79.2 mg/L (5.7-26.3)
[2020-11-10] MEDS: POLYETHYLENE GLYCOL 3350 (17GM) 1 DOSE PACK PO SCH (09:20)
[2020-11-10] MEDS ORDERED: POTASSIUM CHLORIDE 20MEQ TABLET SR PO SCH (11:00)
[2020-11-10 12:00] VITALS: BP 103/41
[2020-11-10] MEDS: FOLIC ACID 1MG TABLET PO SCH (12:24)
[2020-11-10] MEDS: ACETAMINOPHEN 325MG TABLET PO PRN ×2 (15:20→22:23)
[2020-11-10 16:00] VITALS: BP 121/38
[2020-11-10] MEDS ORDERED: POTASSIUM CHLORIDE INJ 40 MEQ in DEXT 5% WATER 250 ML IV NR (20:00)
[2020-11-10 20:25] VITALS: BP 98/49
[2020-11-10] MEDS: SENNOSIDES/DOCUSATE SOD 8.6/50MG TABLET PO SCH (20:35)
[2020-11-11] MEDS: AZTREONAM 1 G in DEXTROSE 5% WATER 50 ML IV SCH ×2 (00:02→06:01)
[2020-11-11 00:09] VITALS: BP 99/48
[2020-11-11] MEDS: DIPHENHYDRAMINE 50MG/ML VIAL IV PRN (00:43)
[2020-11-11] MEDS: MORPHINE SULFATE 2 MG/ML CPJ (NOT FOR IM USE) IV PRN ×4 (00:48→16:42)
[2020-11-11 04:00] VITALS: BP 110/51
[2020-11-11] MEDS: MIDODRINE HCL 5MG TABLET PO SCH ×2 (06:01→16:41)
[2020-11-11] MEDS: BLOOD SUGAR DIAGNOSTIC STRIP TEST SCH ×3 (06:26→17:38)
[2020-11-11] MEDS: INSULIN LISPRO 100 UNITS/ML SUBCUT SCH ×3 (06:27→17:15)
[2020-11-11 06:54] LABS: BASOPHILS % 0.4 % (0.0-2.0); EOSINOPHILS % 8.2 % (0.0-5.0); HEMATOCRIT. 23.3 % (36.0-48.0); HEMOGLOBIN. 7.7 g/dL (12.0-16.0); LYMPHOCYTES % 14.1 % (20.0-50.0); MEAN CORPUSCULAR HEMOGLOBIN 28.8 pg (28.0-32.0); MEAN CORPUSCULAR VOLUME 87.1 fL (81.0-99.0); MEAN PLATELET VOLUME 7.8 fl (7.4-10.4); MONOCYTES % 4.5 % (2.0-8.0); NEUTROPHILS % 72.8 % (40.0-76.0); PLATELET 428 x1000/uL (130-400); RED BLOOD CELL COUNT 2.68 mill/uL (4.2-5.4); RED CELL DISTRIBUTION WIDTH 20.2 % (11.6-14.6)
[2020-11-11 07:18] LABS: CHLORIDE 116 mEq/L (98-107)
[2020-11-11 08:00] VITALS: BP 131/47
[2020-11-11] MEDS: DOCUSATE SODIUM SUGAR FREE 100MG/10ML UDC PO SCH (09:00)
[2020-11-11] MEDS: FOLIC ACID 1MG TABLET PO SCH (09:17)
[2020-11-11] MEDS: POLYETHYLENE GLYCOL 3350 (17GM) 1 DOSE PACK PO SCH (09:17)
[2020-11-11] MEDS: DEXT 5%/0.9% NACL 1,000 ML IV SCH ×2 (09:18→17:38)
[2020-11-11 12:00] VITALS: BP 114/54
[2020-11-11 16:00] VITALS: BP 113/47
[2020-11-11 16:42] VITALS: BP 116/51
[2020-11-11] MEDS ORDERED: POLYETHYLENE GLYCOL 3350 (17GM) 1 DOSE PACK PO NR (16:45)
[2020-11-11] MEDS ORDERED: NITR-87 MT (17:06)
[2020-11-11] MEDS ORDERED: SENNOSIDES/DOCUSATE SOD 8.6/50MG TABLET PO SCH (21:00)
[2020-11-12] MEDS ORDERED: NITROFURANTOIN 100MG M/M CAPSULE PO SCH (09:00)
== END 2020-11-11 19:27 | DRG 720 ==
LOC: ER 14:29 → 8WST 19:15 → ENRESERV 20:32 → CVICU 11-04 02:45 → 5WST 11-09 17:20
PROVIDERS: ADMIT Internal Medicine; ATTEND Internal Medicine
PROC: 02H633Z Insertion of Infusion Device into Right Atrium, Percutaneous Approach (ICD-10-PCS; principal; 2020-11-04)
PROC: B548ZZA Ultrasonography of Superior Vena Cava, Guidance (ICD-10-PCS; 2020-11-04)
DX: A41.51 Sepsis due to Escherichia coli [E. coli] (principal); R65.21 Severe sepsis with septic shock; G93.40 Encephalopathy, unspecified; E46 Unspecified protein-calorie malnutrition; E87.2 Acidosis; J91.8 Pleural effusion in other conditions classified elsewhere; E11.22 Type 2 diabetes mellitus with diabetic chronic kidney disease; G35 Multiple sclerosis; E87.6 Hypokalemia; E86.0 Dehydration; N18.9 Chronic kidney disease, unspecified; I13.0 Hypertensive heart and chronic kidney disease with heart failure and stage 1 through stage 4 chronic kidney disease, or unspecified chronic kidney disease; N13.6 Pyonephrosis; K21.9 Gastro-esophageal reflux disease without esophagitis; D64.9 Anemia, unspecified; K56.41 Fecal impaction; I42.8 Other cardiomyopathies; I82.501 Chronic embolism and thrombosis of unspecified deep veins of right lower extremity; I50.9 Heart failure, unspecified; R16.0 Hepatomegaly, not elsewhere classified; K76.0 Fatty (change of) liver, not elsewhere classified; Z68.28 Body mass index [BMI] 28.0-28.9, adult; Z79.899 Other long term (current) drug therapy; Z88.0 Allergy status to penicillin; Z88.2 Allergy status to sulfonamides; Z91.018 Allergy to other foods
CPT/HCPCS: 36415; 36600; 71045; 74176; 76700; 76937; 80048; 80053; 80061; 80150; 81003; 82375; 82550; 82553; 82607; 82728; 82746; 82784; 82805; 82962; 83010; 83036; 83540; 83550; 83605; 83615; 83735; 83880; 83883; 84075; 84132; 84439; 84443; 84484; 85025; 85044; 85379; 86334; 86850; 86880; 86900; 86920; 87077; 87186; 93005; 93306; 93970; 99291; A6261; C1725; J0278; J1200; J1650; J1815; J2060; J2270; J2370; J2405; J2543; J3370; J3475; J3480; J3490; J7030; J7042; J7050; J7060